=== PATIENT | female | born 1955 | race Hispanic/Latino ===

== ENCOUNTER 2016-09-20 14:50 | Emergency (ER) | payer MEDICARE ==
[2016-09-21] MEDS ORDERED: FLEXERIL PO ONE (07:46)
--- NOTE | 2016-09-21 07:50 | Emergency Department Report ---
ED Neck Pain/Injury HPI - General Chief Complaint: Neck Pain/Injury Stated Complaint: NECK/BACK PAIN Time Seen by Provider: 09/21/16 07:40 Source: patient Mode of arrival: Ambulatory Limitations: No Limitations - History of Present Illness Initial Comments: 60-year-old female presents to the emergency department complaining of neck pain and swelling in her feet. Patient states her feet have been swelling for the past 2 days. The swelling does not go past her ankles. Patient is also complaining of 2 days of pain in the back of her neck. Patient describes sharp pain that does not radiate. She denies trauma. She also reports headache in the back and top of her head. She denies weakness or paresthesias. She has been taking Tylenol for her neck pain without relief. There are no other complaints. MD Complaint: neck pain -: Gradual, days(s) (2) Place: home Severity: mild Quality: sharp Consistency: constant Improves With: none Worsens With: none Context: unknown Associated Symptoms: none Treatments Prior to Arrival: Acetaminophen - Related Data Home Medications Medication Instructions Recorded Confirmed Last Taken Diltiazem HCl [Diltiazem 24Hr ER] 180 mg PO DAILY 10/23/13 09/19/15 2 Days Ago 180 Simvastatin 1 tab PO QHS 10/23/13 03/29/16 2 Days Ago 20 Sodium Bicarbonate 1 tab PO DAILY 10/23/13 03/29/16 2 Days Ago Cyclobenzaprine [Flexeril 10 MG 10 mg PO TID PRN 09/19/15 03/29/16 2 Days Ago TAB] 10 glipiZIDE [Glucotrol] 5 mg PO QDAY 09/19/15 03/29/16 1 Day Ago 5 Previous Rx's Medication Instructions Recorded Last Taken Type HYDROcodone/APAP 5-325 [[place] 1 each PO Q6HR PRN #20 tablet 09/19/15 2 Days Ago Rx 5-325 mg TAB] 1 amLODIPine [Norvasc] 10 mg PO DAILY #30 tab 03/29/16 Unknown Rx Methocarbamol [Robaxin TAB] 750 mg PO BID PRN #30 tab 09/21/16 Unknown Rx Allergies Allergy/AdvReac Type Severity Reaction Status Date / Time codeine Allergy Unknown Verified 09/19/15 14:16 Penicillins Allergy Unknown Verified 09/19/15 14:16 ED Review of Systems ROS: Stated complaint: NECK/BACK PAIN Other details as noted in HPI Comment: All other systems reviewed and negative Cardiovascular: edema Neurological: headache ED Past Medical Hx - Past Medical History Previous Medical History?: Yes Hx Hypertension: Yes Hx Congestive Heart Failure: No Hx Diabetes: Yes Hx Arthritis: Yes (left arm) Hx Asthma: No Hx COPD: No Hx HIV: No Additional medical history: HIGH CHOLESTEROL. OBESITY - Surgical History Past Surgical History?: Yes Hx Cholecystectomy: Yes Additional Surgical History: hysterectomy - Family History Family history: no significant - Social History Smoking Status: Current Every Day Smoker Substance Use Type: None - Medications Home Medications: Home Medications Medication Instructions Recorded Confirmed Last Taken Type Diltiazem HCl [Diltiazem 24Hr ER] 180 mg PO DAILY 10/23/13 09/19/15 2 Days Ago History 180 Simvastatin 1 tab PO QHS 10/23/13 03/29/16 2 Days Ago History 20 Sodium Bicarbonate 1 tab PO DAILY 10/23/13 03/29/16 2 Days Ago History Cyclobenzaprine [Flexeril 10 MG 10 mg PO TID PRN 09/19/15 03/29/16 2 Days Ago History TAB] 10 HYDROcodone/APAP 5-325 [[place] 1 each PO Q6HR PRN #20 tablet 09/19/15 03/29/16 2 Days Ago Rx 5-325 mg TAB] 1 glipiZIDE [Glucotrol] 5 mg PO QDAY 09/19/15 03/29/16 1 Day Ago History 5 amLODIPine [Norvasc] 10 mg PO DAILY #30 tab 03/29/16 Unknown Rx Methocarbamol [Robaxin TAB] 750 mg PO BID PRN #30 tab 09/21/16 Unknown Rx ED Physical Exam - General Limitations: No Limitations General appearance: alert, in no apparent distress - Head Head exam: Present: atraumatic, normocephalic - Eye Eye exam: Present: normal appearance, PERRL, EOMI - ENT ENT exam: Present: normal exam, normal orophraynx, mucous membranes moist - Neck Neck exam: Present: normal inspection, tenderness (mild diffuse posterior tenderness to palpation with muscle spasm noted. No bony tenderness), full ROM - Respiratory Respiratory exam: Present: normal lung sounds bilaterally. Absent: respiratory distress - Cardiovascular Cardiovascular Exam: Present: regular rate, normal rhythm, normal heart sounds - GI/Abdominal GI/Abdominal exam: Present: soft, normal bowel sounds. Absent: distended, tenderness - Extremities Exam Extremities exam: Present: full ROM, pedal edema (bilateral nonpitting pedal edema.). Absent: tenderness - Back Exam Back exam: Present: normal inspection, full ROM. Absent: tenderness - Neurological Exam Neurological exam: Present: alert, oriented X3. Absent: motor sensory deficit - Skin Skin exam: Present: warm, dry, intact ED Course Vital Signs 09/20/16 09/21/16 09/21/16 15:30 05:25 07:45 Temperature 98.6 F Pulse Rate 72 77 85 Respiratory 18 18 18 Rate Blood Pressure 131/58 Blood Pressure 146/57 156/81 [Left] O2 Sat by Pulse 95 94 93 Oximetry ED Medical Decision Making - Lab Data Result diagrams: 09/21/16 07:55 - EKG Data -: EKG Interpreted by Me EKG shows normal: sinus rhythm, axis, intervals, QRS complexes, ST-T waves Rate: normal - EKG Data When compared to previous EKG there are: previous EKG unavailable Interpretation: normal EKG - Medical Decision Making Laboratory results reviewed and discussed with the patient. Patient reports feeling better with medication. It is likely that her pedal edema secondary to her use of amlodipine. Patient does have some renal insufficiency, but this is unchanged from previous. Patient will be discharged home at this time to follow up with her primary care physician. - Differential Diagnosis tension headache, muscle spasm, renal failure, pedal edema Critical care attestation.: If time is entered above; I have spent that time in minutes in the direct care of this critically ill patient, excluding procedure time. ED Disposition Clinical Impression: Muscle spasms of neck, Pedal edema Disposition: DISCHARGED TO HOME OR SELFCARE Is pt being admited?: No Condition: Stable Instructions: Muscle Spasm (ED), Leg Edema (ED) Prescriptions: Methocarbamol [Robaxin TAB] 750 mg PO BID PRN #30 tab PRN Reason: Muscle Spasm Referrals: [facility] [Other] - 3-5 Days Time of Disposition: 09:04
[2016-09-21 08:31] LABS: Albumin 4.1 g/dL (3.9-5); Albumin/Globulin Ratio 1.4 %; BUN/Creatinine Ratio 13.84; Bilirubin,Total 0.3 mg/dL (0.1-1.2); Calcium 8.9 mg/dL (8.4-10.2); Chloride 99.9 mmol/L (98-107); Potassium 3.7 mmol/L (3.6-5.0)
[2016-09-21 09:10] VITALS: BP 124/54
== END 2016-09-21 09:09 | disposition home or self-care (01) ==
LOC: ED 14:50
DX: M62.838 Other muscle spasm (principal); R60.0 Localized edema; I10 Essential (primary) hypertension; E11.9 Type 2 diabetes mellitus without complications; M19.90 Unspecified osteoarthritis, unspecified site; Z88.0 Allergy status to penicillin; Z88.8 Allergy status to other drugs, medicaments and biological substances; E78.00 Pure hypercholesterolemia, unspecified; Z90.49 Acquired absence of other specified parts of digestive tract; Z90.710 Acquired absence of both cervix and uterus; F17.200 Nicotine dependence, unspecified, uncomplicated
CPT/HCPCS: 36415; 80053; 93005; 93010; 99283

== ENCOUNTER 2017-12-27 09:12 | Emergency (ER) | payer MEDICARE ==
[2017-12-27 09:41] VITALS: BP 141/58
[2017-12-27] MEDS ORDERED: TORADOL IM ONE (13:18)
--- NOTE | 2017-12-27 13:21 | Emergency Department Report ---
ED Back Pain/Injury HPI - General Chief Complaint: Back Pain/Injury Stated Complaint: BACK PAIN Time Seen by Provider: 12/27/17 13:09 Source: patient Limitations: No Limitations - History of Present Illness Initial Comments: Patient is a 62-year-old female who is presenting with right lower back pain. Patient states he didn't present for approximately 2 weeks. Patient states his atenolol to have hurt to move. Patient denies any dysuria hematuria or urinary frequency or abdominal pain at this time. Patient denies any injury. MD Complaint: back pain Quality: aching Consistency: constant - Related Data Home Medications Medication Instructions Recorded Confirmed Last Taken Diltiazem HCl [Diltiazem 24Hr ER] 180 mg PO DAILY 10/23/13 09/19/15 2 Days Ago ~03/27/16 180 Simvastatin 1 tab PO QHS 10/23/13 03/29/16 2 Days Ago ~03/27/16 20 Sodium Bicarbonate 1 tab PO DAILY 10/23/13 03/29/16 2 Days Ago ~03/27/16 Cyclobenzaprine [Flexeril 10 MG 10 mg PO TID PRN 09/19/15 03/29/16 2 Days Ago TAB] ~03/27/16 10 glipiZIDE [Glucotrol] 5 mg PO QDAY 09/19/15 03/29/16 1 Day Ago ~03/28/16 5 Previous Rx's Medication Instructions Recorded Last Taken Type HYDROcodone/APAP 5-325 [[place] 1 each PO Q6HR PRN #20 tablet 09/19/15 2 Days Ago Rx 5-325 mg TAB] ~03/27/16 1 amLODIPine [Norvasc] 10 mg PO DAILY #30 tab 03/29/16 Unknown Rx Methocarbamol [Robaxin TAB] 750 mg PO BID PRN #30 tab 09/21/16 Unknown Rx Ibuprofen [Motrin] 600 mg PO Q8H PRN #20 tablet 12/27/17 Unknown Rx methOCARBAMOL [Robaxin TAB] 500 mg PO Q6H PRN #15 tablet 12/27/17 Unknown Rx traMADol [Ultram] 50 mg PO Q6HR PRN #12 tablet 12/27/17 Unknown Rx Allergies Allergy/AdvReac Type Severity Reaction Status Date / Time codeine Allergy Unknown Verified 12/27/17 09:37 Penicillins Allergy Unknown Verified 12/27/17 09:37 ED Review of Systems ROS: Stated complaint: BACK PAIN Other details as noted in HPI Comment: All other systems reviewed and negative ED Past Medical Hx - Past Medical History HIGH CHOLESTEROL. OBESITY Family history: no significant family history ED Back Pain Physical Exam - Exam General: Vital signs noted. No distress. Alert and acting appropriately. Back/Abdomen: Yes Perilumbar Tenderness (right), No Abdominal Tenderness, No Perithoracic Tenderness, No Sacroiliac Tenderness, No Flank Tenderness, No Straight Leg Raise Pain Neuro: Yes Normal Sensation, Yes Normal DTR's, Yes Normal Gait, No Motor Weakness ED Course Vital Signs 12/27/17 09:38 Temperature 97.8 F Pulse Rate 57 L Blood Pressure 141/58 O2 Sat by Pulse 95 Oximetry ED Medical Decision Making - Medical Decision Making Patient likely with a lumbar strain. The patient will be referred to orthopedics and will be given meds for symptomatic relief. Critical care attestation.: If time is entered above; I have spent that time in minutes in the direct care of this critically ill patient, excluding procedure time. ED Disposition Clinical Impression: Right lumbar pain Disposition: DC-01 TO HOME OR SELFCARE Is pt being admited?: No Does the pt Need Aspirin: No Condition: Stable Instructions: Back Pain (ED) Referrals: MOE RITCHIE MD [Staff Physician] - 3-5 Days
== END 2017-12-27 13:29 | disposition home or self-care (01) ==
LOC: ED 09:12
DX: M54.5 Low back pain (principal); E78.00 Pure hypercholesterolemia, unspecified; Z79.899 Other long term (current) drug therapy; Z88.0 Allergy status to penicillin; Z88.5 Allergy status to narcotic agent
CPT/HCPCS: 96372; 99282; J1885

== ENCOUNTER 2020-05-10 11:34 | Emergency (ER) | payer MEDICARE ==
[2020-05-10 12:04] VITALS: BP 137/52
--- NOTE | 2020-05-10 12:11 | Emergency Department Report ---
ED ENT HPI - General Chief complaint: Upper Respiratory Infection Stated complaint: SORE THROAT/COUGH Time Seen by Provider: 05/10/20 12:06 Source: patient Mode of arrival: Ambulatory Limitations: No Limitations - History of Present Illness Initial comments: 64-year-old female who presents emergency department complaining of a few day history sore throat that worsens with eating and drinking associated with a nonproductive cough. Reports no fevers chills no hemoptysis no hematemesis no hematochezia. She reports no shortness of breath no home no orthopnea no lower extremity swelling no wheezing. MD complaint: sore throat -: Gradual Location: throat Severity: mild Quality: dull Consistency: constant Improves with: none Worsens with: none Associated Symptoms: cough. denies: sore throat, tinnitus, discharge from ear, rhinorrhea - Related Data Home Medications Medication Instructions Recorded Confirmed Last Taken Simvastatin 1 tab PO QHS 10/23/13 03/29/16 2 Days Ago ~03/27/16 20 Sodium Bicarbonate 1 tab PO DAILY 10/23/13 03/29/16 2 Days Ago ~03/27/16 dilTIAZem HCl [Diltiazem 24Hr ER] 180 mg PO DAILY 10/23/13 09/19/15 2 Days Ago ~03/27/16 180 Cyclobenzaprine [Flexeril 10 MG 10 mg PO TID PRN 09/19/15 03/29/16 2 Days Ago TAB] ~03/27/16 10 glipiZIDE [Glucotrol] 5 mg PO QDAY 09/19/15 03/29/16 1 Day Ago ~03/28/16 5 Previous Rx's Medication Instructions Recorded Last Taken Type HYDROcodone/APAP 5-325 [[place] 1 each PO Q6HR PRN #20 tablet 09/19/15 2 Days Ago Rx 5-325 mg TAB] ~03/27/16 1 amLODIPine [Norvasc] 10 mg PO DAILY #30 tab 03/29/16 Unknown Rx methOCARBAMOL [Robaxin TAB] 750 mg PO BID PRN #30 tab 09/21/16 Unknown Rx Ibuprofen [Motrin] 600 mg PO Q8H PRN #20 tablet 12/27/17 Unknown Rx methOCARBAMOL [Robaxin TAB] 500 mg PO Q6H PRN #15 tablet 12/27/17 Unknown Rx traMADoL [Ultram] 50 mg PO Q6HR PRN #12 tablet 12/27/17 Unknown Rx Azithromycin [Zithromax Tri-Raúl] 500 mg PO DAILY #1 pack 05/10/20 Unknown Rx Allergies Allergy/AdvReac Type Severity Reaction Status Date / Time codeine Allergy Unknown Verified 12/27/17 09:37 Penicillins Allergy Unknown Verified 12/27/17 09:37 ED Dental HPI - General Chief complaint: Upper Respiratory Infection Stated complaint: SORE THROAT/COUGH Time Seen by Provider: 05/10/20 12:06 Source: patient Mode of arrival: Ambulatory Limitations: No Limitations - Related Data Home Medications Medication Instructions Recorded Confirmed Last Taken Simvastatin 1 tab PO QHS 10/23/13 03/29/16 2 Days Ago ~03/27/16 20 Sodium Bicarbonate 1 tab PO DAILY 10/23/13 03/29/16 2 Days Ago ~03/27/16 dilTIAZem HCl [Diltiazem 24Hr ER] 180 mg PO DAILY 10/23/13 09/19/15 2 Days Ago ~03/27/16 180 Cyclobenzaprine [Flexeril 10 MG 10 mg PO TID PRN 09/19/15 03/29/16 2 Days Ago TAB] ~03/27/16 10 glipiZIDE [Glucotrol] 5 mg PO QDAY 09/19/15 03/29/16 1 Day Ago ~03/28/16 5 Previous Rx's Medication Instructions Recorded Last Taken Type HYDROcodone/APAP 5-325 [[place] 1 each PO Q6HR PRN #20 tablet 09/19/15 2 Days Ago Rx 5-325 mg TAB] ~03/27/16 1 amLODIPine [Norvasc] 10 mg PO DAILY #30 tab 03/29/16 Unknown Rx methOCARBAMOL [Robaxin TAB] 750 mg PO BID PRN #30 tab 09/21/16 Unknown Rx Ibuprofen [Motrin] 600 mg PO Q8H PRN #20 tablet 12/27/17 Unknown Rx methOCARBAMOL [Robaxin TAB] 500 mg PO Q6H PRN #15 tablet 12/27/17 Unknown Rx traMADoL [Ultram] 50 mg PO Q6HR PRN #12 tablet 12/27/17 Unknown Rx Azithromycin [Zithromax Tri-Raúl] 500 mg PO DAILY #1 pack 05/10/20 Unknown Rx Allergies Allergy/AdvReac Type Severity Reaction Status Date / Time codeine Allergy Unknown Verified 12/27/17 09:37 Penicillins Allergy Unknown Verified 12/27/17 09:37 ED Review of Systems ROS: Stated complaint: SORE THROAT/COUGH Other details as noted in HPI Comment: All other systems reviewed and negative ED Past Medical Hx - Past Medical History Previous Medical History?: Yes Hx Hypertension: Yes Hx Congestive Heart Failure: No Hx Diabetes: Yes Hx Arthritis: Yes (left arm) Hx Asthma: No Hx COPD: No Hx HIV: No Additional medical history: HIGH CHOLESTEROL. OBESITY - Surgical History Past Surgical History?: Yes Hx Cholecystectomy: Yes Additional Surgical History: hysterectomy - Social History Smoking Status: Never Smoker Substance Use Type: None - Medications Home Medications: Home Medications Medication Instructions Recorded Confirmed Last Taken Type Simvastatin 1 tab PO QHS 10/23/13 03/29/16 2 Days Ago History ~03/27/16 20 Sodium Bicarbonate 1 tab PO DAILY 10/23/13 03/29/16 2 Days Ago History ~03/27/16 dilTIAZem HCl [Diltiazem 24Hr ER] 180 mg PO DAILY 10/23/13 09/19/15 2 Days Ago History ~03/27/16 180 Cyclobenzaprine [Flexeril 10 MG 10 mg PO TID PRN 09/19/15 03/29/16 2 Days Ago History TAB] ~03/27/16 10 HYDROcodone/APAP 5-325 [[place] 1 each PO Q6HR PRN #20 tablet 09/19/15 03/29/16 2 Days Ago Rx 5-325 mg TAB] ~03/27/16 1 glipiZIDE [Glucotrol] 5 mg PO QDAY 09/19/15 03/29/16 1 Day Ago History ~03/28/16 5 amLODIPine [Norvasc] 10 mg PO DAILY #30 tab 03/29/16 Unknown Rx methOCARBAMOL [Robaxin TAB] 750 mg PO BID PRN #30 tab 09/21/16 Unknown Rx Ibuprofen [Motrin] 600 mg PO Q8H PRN #20 tablet 12/27/17 Unknown Rx methOCARBAMOL [Robaxin TAB] 500 mg PO Q6H PRN #15 tablet 12/27/17 Unknown Rx traMADoL [Ultram] 50 mg PO Q6HR PRN #12 tablet 12/27/17 Unknown Rx Azithromycin [Zithromax Tri-Raúl] 500 mg PO DAILY #1 pack 05/10/20 Unknown Rx ED Physical Exam - General Limitations: No Limitations General appearance: alert, in no apparent distress - Head Head exam: Present: atraumatic, normocephalic - Eye Eye exam: Present: normal appearance - ENT ENT exam: Present: mucous membranes moist, other (red erythema to pharynx) - Neck Neck exam: Present: normal inspection - Respiratory Respiratory exam: Present: normal lung sounds bilaterally. Absent: respiratory distress - Cardiovascular Cardiovascular Exam: Present: regular rate, normal rhythm. Absent: systolic murmur, diastolic murmur, rubs, gallop - GI/Abdominal GI/Abdominal exam: Present: soft, normal bowel sounds - Extremities Exam Extremities exam: Present: normal inspection - Back Exam Back exam: Present: normal inspection - Neurological Exam Neurological exam: Present: alert, oriented X3 - Psychiatric Psychiatric exam: Present: normal affect, normal mood - Skin Skin exam: Present: warm, dry, intact, normal color. Absent: rash ED Course Vital Signs 05/10/20 12:02 Temperature 97.7 F Pulse Rate 65 Respiratory 20 Rate Blood Pressure 137/52 O2 Sat by Pulse 95 Oximetry Critical care attestation.: If time is entered above; I have spent that time in minutes in the direct care of this critically ill patient, excluding procedure time. ED Disposition Clinical Impression: Pharyngitis Disposition: DC-01 TO HOME OR SELFCARE Is pt being admited?: No Does the pt Need Aspirin: No Condition: Stable Instructions: Pharyngitis, Strep Throat, Adult, [id number], Sore Throat, [id number] Prescriptions: Azithromycin [Zithromax Tri-Raúl] 500 mg PO DAILY #1 pack Referrals: [facility] [Provider Group] - 3-5 Days
== END 2020-05-10 12:53 | disposition home or self-care (01) ==
LOC: ED 11:34
DX: J02.9 Acute pharyngitis, unspecified (principal); I10 Essential (primary) hypertension; E11.9 Type 2 diabetes mellitus without complications; M13.88 Other specified arthritis, other site; J45.909 Unspecified asthma, uncomplicated; E78.00 Pure hypercholesterolemia, unspecified; Z90.710 Acquired absence of both cervix and uterus; Z90.49 Acquired absence of other specified parts of digestive tract; Z79.899 Other long term (current) drug therapy; Z88.6 Allergy status to analgesic agent; Z88.0 Allergy status to penicillin
CPT/HCPCS: 99282

== ENCOUNTER 2020-08-31 11:52 | Emergency (ER) | payer MEDICARE ==
[2020-08-31] MEDS ORDERED: ONDANSETRON 4 MG ODT TAB PO ONE (12:42)
[2020-08-31] MEDS ORDERED: HYDROcodone/ACETAMINOPHEN 5-325 MG TAB PO ONE (12:42)
--- NOTE | 2020-08-31 12:43 | Emergency Department Report ---
ED Lower Extremity HPI - General Stated Complaint: RT KNEE SWELLING Time Seen by Provider: 08/31/20 12:41 - History of Present Illness Initial Comments: 64 yr old female with past medical history of diabetes, hyperlipidemia, anxiety and depression and a past medical history of arthritis presents to the ER today with complaints of right knee pain and swelling. Patient states that she woke up this morning with pain and swelling to the anterior aspect of her right knee. She denies any injury but she did does admits that she was walking well about 10 to 15 minutes yesterday. She reports increased pain with flexion extension of knee and with ambulation and weightbearing. Reports no bruising or erythema. Reports no other symptoms at this time. MD Complaint: other (Right knee pain ) -: Gradual, This morning - Related Data Home Medications Medication Instructions Recorded Confirmed Last Taken Simvastatin 1 tab PO QHS 10/23/13 03/29/16 2 Days Ago ~03/27/16 20 dilTIAZem HCl [Diltiazem 24Hr ER] 180 mg PO DAILY 10/23/13 09/19/15 2 Days Ago ~03/27/16 180 Cyclobenzaprine [Flexeril 10 MG 10 mg PO TID PRN 09/19/15 03/29/16 2 Days Ago TAB] ~03/27/16 10 glipiZIDE [Glucotrol] 5 mg PO QDAY 09/19/15 03/29/16 1 Day Ago ~03/28/16 5 Previous Rx's Medication Instructions Recorded Last Taken Type amLODIPine [Norvasc] 10 mg PO DAILY #30 tab 03/29/16 Unknown Rx Diclofenac 1% [Diclofenac 1% 2 gram TP QID PRN #100 gm 08/31/20 Unknown Rx topical gel] HYDROcodone/APAP 5-325 [[place] 1 each PO Q6HR PRN #12 tablet 08/31/20 Unknown Rx 5-325 mg TAB] Allergies Allergy/AdvReac Type Severity Reaction Status Date / Time codeine Allergy Unknown Verified 12/27/17 09:37 Penicillins Allergy Unknown Verified 12/27/17 09:37 ED Review of Systems ROS: Stated complaint: RT KNEE SWELLING Other details as noted in HPI Comment: All other systems reviewed and negative Musculoskeletal: joint swelling, arthralgia ED Past Medical Hx - Past Medical History Hx Hypertension: Yes Hx Congestive Heart Failure: No Hx Diabetes: Yes Hx Arthritis: Yes (left arm) Hx Asthma: No Hx COPD: No Hx HIV: No Additional medical history: HIGH CHOLESTEROL. OBESITY - Surgical History Hx Cholecystectomy: Yes Additional Surgical History: hysterectomy - Social History Smoking Status: Never Smoker Substance Use Type: None - Medications Home Medications: Home Medications Medication Instructions Recorded Confirmed Last Taken Type Simvastatin 1 tab PO QHS 10/23/13 03/29/16 2 Days Ago History ~03/27/16 20 dilTIAZem HCl [Diltiazem 24Hr ER] 180 mg PO DAILY 10/23/13 09/19/15 2 Days Ago History ~03/27/16 180 Cyclobenzaprine [Flexeril 10 MG 10 mg PO TID PRN 09/19/15 03/29/16 2 Days Ago History TAB] ~03/27/16 10 glipiZIDE [Glucotrol] 5 mg PO QDAY 09/19/15 03/29/16 1 Day Ago History ~03/28/16 5 amLODIPine [Norvasc] 10 mg PO DAILY #30 tab 03/29/16 Unknown Rx Diclofenac 1% [Diclofenac 1% 2 gram TP QID PRN #100 gm 08/31/20 Unknown Rx topical gel] HYDROcodone/APAP 5-325 [[place] 1 each PO Q6HR PRN #12 tablet 08/31/20 Unknown Rx 5-325 mg TAB] ED Physical Exam - General General appearance: alert, in no apparent distress, obese - Head Head exam: Present: atraumatic, normocephalic, normal inspection - Eye Eye exam: Present: normal appearance, PERRL, EOMI Pupils: Present: normal accommodation - Respiratory Respiratory exam: Absent: respiratory distress - Cardiovascular Cardiovascular Exam: Present: regular rate - Expanded Lower Extremity Exam Right Knee exam: Present: tenderness (Moderate tenderness to palpation to the anterior medial aspect of the right knee), swelling (There is mild swelling when compared to the left to the anterior aspect of the right knee). Absent: full ROM (Flexion and extension of the knee reduced due to pain), abrasion, laceration, ecchymosis, deformity, crepidus, dislocation, erythema, effusion, pain w/ pronation/supination, posterior draw sign, pain/laxity with valgus, pain/laxity with varus Lower Leg exam: Absent: normal inspection, tenderness, swelling, palpable cord, Jose's sign Neuro vascular tendon exam: Present: no vascular compromise - Neurological Exam Neurological exam: Present: alert, oriented X3, CN II-XII intact - Psychiatric Psychiatric exam: Present: normal affect, normal mood - Skin Skin exam: Present: intact ED Course Vital Signs 08/31/20 08/31/20 12:38 14:24 Temperature 98.2 F 97.8 F Pulse Rate 71 100 H Respiratory 18 Rate Blood Pressure 146/62 O2 Sat by Pulse 97 Oximetry ED Lower Extremity MDM - Radiology Data Radiology results: report reviewed Patient: CARLIE TOLEDO MR#: [id number] : 1955 Acct:[id number] Age/Sex: 64 / F ADM Date: 08/31/20 Loc: ED Attending Dr: Ordering Physician: TOYA TOLENTINO Date of Service: 08/31/20 Procedure(s): XR knee 3V RT Accession Number(s): [id number] cc: TOYA TOLENTINO Fluoro Time In Minutes: RIGHT KNEE 3 VIEWS INDICATION: pain and swelling. COMPARISON: None. IMPRESSION: No acute osseous or soft tissue abnormality. Moderate to severe osteoarthritic changes are identified in the medial compartment and patellofemoral compartment. Signer Name: Harsh Stern Jr, MD Signed: 08/31/2020 1:22 PM Workstation Name: [id number] Transcribed By: TTR Dictated By: HARSH STERN JR, MD Electronically Authenticated By: HARSH STERN JR, MD Signed Date/Time: 08/31/20 132 DD/ 21 TD/TT: Critical care attestation.: If time is entered above; I have spent that time in minutes in the direct care of this critically ill patient, excluding procedure time. ED Disposition Clinical Impression: Right knee DJD, Sprain of right knee Disposition: DC-01 TO HOME OR SELFCARE Is pt being admited?: No Does the pt Need Aspirin: No Condition: Stable Instructions: Arthritis, [id number], Knee Sprain, Adult, [id number] Additional Instructions: Take the norco as prescribed. Use the voltaren gel as prescribed. I recommend elevating your leg as often as possible for the next 2-3 days. Use the FARIDEH wrap as instructed. I recommend following up with the [facility] listed on your d/c instructions. Return to ED if worse. Prescriptions: Diclofenac 1% [Diclofenac 1% topical gel] 2 gram TP QID PRN #100 gm PRN Reason: Pain HYDROcodone/APAP 5-325 [[place] 5-325 mg TAB] 1 each PO Q6HR PRN #12 tablet PRN Reason: Pain Referrals: MOE RITCHIE MD [Staff Physician] - 3-5 Days Time of Disposition: 13:41
[2020-08-31 12:44] VITALS: BP 146/62
--- NOTE | 2020-08-31 13:27 | XRay Report ---
RIGHT KNEE 3 VIEWS INDICATION: pain and swelling. COMPARISON: None. IMPRESSION: No acute osseous or soft tissue abnormality. Moderate to severe osteoarthritic change s are identified in the medial compartment and patellofemoral compartment. Signer Name: Harsh Stern Jr, MD Signed: 08/31/2020 1:22 PM Workstation Name: [id number]
== END 2020-08-31 14:23 | disposition home or self-care (01) ==
LOC: ED 11:52
DX: S83.91XA Sprain of unspecified site of right knee, initial encounter (principal); M17.11 Unilateral primary osteoarthritis, right knee; I10 Essential (primary) hypertension; E11.9 Type 2 diabetes mellitus without complications; M19.90 Unspecified osteoarthritis, unspecified site; Z98.890 Other specified postprocedural states; Z79.899 Other long term (current) drug therapy; X58.XXXA Exposure to other specified factors, initial encounter; Y93.89 Activity, other specified; Y92.89 Other specified places as the place of occurrence of the external cause; Y99.8 Other external cause status
CPT/HCPCS: 99283; Q0162

== ENCOUNTER 2021-03-21 07:06 | Inpatient (IN) | payer MEDICARE ==
[2021-03-21] MEDS ORDERED: SODIUM CHLORIDE 0.9% 1000 ML IV SOLN IV ONE (07:57)
[2021-03-21] MEDS ORDERED: ACETAMINOPHEN 500 MG TAB PO ONE (08:02)
--- NOTE | 2021-03-21 08:02 | Emergency Department Report ---
ED General Adult HPI - General Chief complaint: Chest Pain Stated complaint: neck and shoulder pain Time Seen by Provider: 03/21/21 07:48 Source: patient Mode of arrival: Ambulatory Limitations: No Limitations - History of Present Illness Initial comments: Ms. Louise is a 65-year-old female with history of hypertension, diabetes and hyperlipidemia. Patient presented to the ER complaining of diffuse upper back pain that radiated to the neck and to the chest. Patient described the pain as dull aching pain. Patient described the chest pain as diffuse with no localization. Patient stated that she is having chills. She also reported some shortness of breath but no cough. Patient also stated that she has been nauseated but no vomiting. Patient is fully vaccinated against COVID-19. Last shot was February 21. Severity scale (0 -10): 9 - Related Data Home Medications Medication Instructions Recorded Confirmed Last Taken Simvastatin 1 tab PO QHS 10/23/13 03/21/21 2 Days Ago ~03/27/16 20 dilTIAZem HCl [Diltiazem 24Hr ER] 180 mg PO DAILY 10/23/13 03/21/21 2 Days Ago ~03/27/16 180 Cyclobenzaprine [Flexeril 10 MG 10 mg PO TID PRN 09/19/15 03/21/21 2 Days Ago TAB] ~03/27/16 10 glipiZIDE [Glucotrol] 5 mg PO QDAY 09/19/15 03/21/21 1 Day Ago ~03/28/16 5 Previous Rx's Medication Instructions Recorded Last Taken Type amLODIPine [Norvasc] 10 mg PO DAILY #30 tab 03/29/16 Unknown Rx Diclofenac 1% [Diclofenac 1% 2 gram TP QID PRN #100 gm 08/31/20 Unknown Rx topical gel] HYDROcodone/APAP 5-325 [[place] 1 each PO Q6HR PRN #12 tablet 08/31/20 Unknown Rx 5-325 mg TAB] Allergies Allergy/AdvReac Type Severity Reaction Status Date / Time codeine Allergy Unknown Verified 03/21/21 07:27 Penicillins Allergy Unknown Verified 03/21/21 07:27 ED Review of Systems ROS: Stated complaint: neck and shoulder pain Other details as noted in HPI Comment: All other systems reviewed and negative Constitutional: chills, fever Respiratory: shortness of breath, SOB with exertion, SOB at rest. denies: wheezing Cardiovascular: chest pain Gastrointestinal: nausea. denies: abdominal pain, vomiting, diarrhea, constipation, hematemesis, melena, hematochezia Musculoskeletal: back pain Neurological: denies: headache ED Past Medical Hx - Past Medical History Hx Hypertension: Yes Hx Congestive Heart Failure: No Hx Diabetes: Yes Hx Arthritis: Yes (left arm) Hx Asthma: No Hx COPD: No Hx HIV: No Additional medical history: HIGH CHOLESTEROL. OBESITY - Surgical History Hx Cholecystectomy: Yes Additional Surgical History: hysterectomy - Social History Smoking Status: Never Smoker Substance Use Type: None - Medications Home Medications: Home Medications Medication Instructions Recorded Confirmed Last Taken Type Simvastatin 1 tab PO QHS 10/23/13 03/21/21 2 Days Ago History ~03/27/16 20 dilTIAZem HCl [Diltiazem 24Hr ER] 180 mg PO DAILY 10/23/13 03/21/21 2 Days Ago History ~03/27/16 180 Cyclobenzaprine [Flexeril 10 MG 10 mg PO TID PRN 09/19/15 03/21/21 2 Days Ago History TAB] ~03/27/16 10 glipiZIDE [Glucotrol] 5 mg PO QDAY 09/19/15 03/21/21 1 Day Ago History ~03/28/16 5 amLODIPine [Norvasc] 10 mg PO DAILY #30 tab 03/29/16 03/21/21 Unknown Rx Diclofenac 1% [Diclofenac 1% 2 gram TP QID PRN #100 gm 08/31/20 03/21/21 Unknown Rx topical gel] HYDROcodone/APAP 5-325 [[place] 1 each PO Q6HR PRN #12 tablet 08/31/20 03/21/21 Unknown Rx 5-325 mg TAB] ED Physical Exam - General Limitations: No Limitations General appearance: alert, in no apparent distress - Head Head exam: Present: atraumatic, normocephalic, normal inspection - Eye Eye exam: Present: normal appearance - ENT ENT exam: Present: normal exam, mucous membranes dry - Neck Neck exam: Present: normal inspection, full ROM. Absent: tenderness, menin gismus - Respiratory Respiratory exam: Present: normal lung sounds bilaterally - Cardiovascular Cardiovascular Exam: Present: regular rate, normal rhythm, normal heart sounds - GI/Abdominal GI/Abdominal exam: Present: soft, normal bowel sounds. Absent: distended, tenderness, guarding, rebound, rigid, organomegaly, mass, bruit, pulsatile mass, hernia - Extremities Exam Extremities exam: Present: normal inspection, full ROM, normal capillary refill. Absent: tenderness - Back Exam Back exam: Present: normal inspection, full ROM. Absent: CVA tenderness (R), CVA tenderness (L) - Neurological Exam Neurological exam: Present: alert, oriented X3, CN II-XII intact, normal gait, reflexes normal. Absent: motor sensory deficit - Psychiatric Psychiatric exam: Present: normal mood - Skin Skin exam: Present: warm, intact, normal color ED Course Vital Signs 03/21/21 03/21/21 03/21/21 07:25 10:10 10:28 Temperature 99.9 F H Pulse Rate 73 73 Respiratory 20 18 15 Rate Blood Pressure Blood Pressure 109/45 [Right] O2 Sat by Pulse 94 97 96 Oximetry 03/21/21 03/21/21 03/21/21 10:30 10:46 11:00 Temperature Pulse Rate 73 76 76 Respiratory 13 18 23 Rate Blood Pressure 87/33 121/94 118/46 Blood Pressure [Right] O2 Sat by Pulse 96 96 96 Oximetry 03/21/21 03/21/21 03/21/21 11:16 11:30 11:46 Temperature Pulse Rate 77 77 77 Respiratory 39 H 21 28 H Rate Blood Pressure 118/46 118/46 87/33 Blood Pressure [Right] O2 Sat by Pulse 95 95 95 Oximetry 03/21/21 03/21/21 03/21/21 12:00 12:16 12:30 Temperature Pulse Rate 82 77 76 Respiratory 17 26 H 41 H Rate Blood Pressure 118/46 118/46 118/46 Blood Pressure [Right] O2 Sat by Pulse 96 96 96 Oximetry 03/21/21 03/21/21 03/21/21 12:46 13:00 13:16 Temperature Pulse Rate 77 78 77 Respiratory 25 H 20 43 H Rate Blood Pressure 118/46 118/46 118/46 Blood Pressure [Right] O2 Sat by Pulse 96 95 94 Oximetry 03/21/21 03/21/21 03/21/21 13:30 13:46 14:00 Temperature Pulse Rate 76 74 76 Respiratory 41 H 16 15 Rate Blood Pressure 118/46 118/46 118/46 Blood Pressure [Right] O2 Sat by Pulse 93 93 94 Oximetry 03/21/21 03/21/21 03/21/21 14:16 14:30 14:46 Temperature Pulse Rate 80 78 81 Respiratory 20 23 39 H Rate Blood Pressure 118/46 118/46 118/46 Blood Pressure [Right] O2 Sat by Pulse 94 94 94 Oximetry ED Medical Decision Making - Lab Data Result diagrams: 03/21/21 08:12 03/21/21 08:12 - EKG Data -: EKG Interpreted by [facility] EKG shows normal: sinus rhythm Rate: normal - EKG Data Interpretation: no acute changes - Radiology Data Radiology results: report reviewed - Medical Decision Making Ms. Louise is a 65-year-old female with history of hypertension, diabetes and hyperlipidemia. Patient presented to the ER complaining of diffuse upper back pain that radiated to the neck and to the chest. Patient described the pain as dull aching pain. Patient described the chest pain as diffuse with no localization. Patient stated that she is having chills. She also reported some shortness of breath but no cough. Patient also stated that she has been nauseated but no vomiting. Patient is fully vaccinated against COVID-19. Last shot was February 21. Vital signs remained stable. Labs showed leukocytosis of 15,000. Urine is positive for UTI. Chest x-ray showed a linear opacity concerning for pneumonia. BNP is more than 4000. Patient received Levaquin. I discussed the patient with Dr. Manzo, he agreed to admit the patient to medical service for further management. Critical care attestation.: If time is entered above; I have spent that time in minutes in the direct care of this critically ill patient, excluding procedure time. ED Disposition Clinical Impression: New onset of congestive heart failure, Elevated troponin, Pneumonia, UTI (urinary tract infection), Suspected COVID-19 virus infection Disposition: 02 SHORT TERM HOSPITAL Is pt being admited?: Yes Condition: Stable Instructions: Bacterial Pneumonia (ED)
--- NOTE | 2021-03-21 08:33 | XRay Report ---
CHEST 2 VIEWS INDICATION: Chest Pain. COMPARISON: None FINDINGS: Support devices: None. Heart: Within normal limits. Lungs/pleura: No acute air space or interstitial disease. There are minor linear opacities in the ri ght lower lung which probably represent scarring or atelectasis. No evidence for pneumonia, pleural e ffusion or pneumothorax. Additional findings: None. IMPRESSION: No acute findings. Signer Name: Harsh Stern Jr, MD Signed: 03/21/2021 8:29 AM Workstation Name: [id number]
[2021-03-21 08:55] LABS: Basophils % (Auto) 0.3 % (0.0-1.8); Eosinophils % (Auto) 0.2 % (0.0-4.3); Hematocrit 36.3 % (30.3-42.9); Hemoglobin 12.1 gm/dl (10.1-14.3); Lymphocytes # (Auto) 0.9 K/mm3 (1.2-5.4); Lymphocytes % (Auto) 5.7 % (13.4-35.0); Mean Corpuscular HGB Conc 33 % (30-34); Mean Corpuscular Volume 90 fl (79-97); Monocytes # (Auto) 0.9 K/mm3 (0.0-0.8); Platelet Count 290 K/mm3 (140-440); Red Blood Count 4.02 M/mm3 (3.65-5.03); Red Cell Distribution Width 13.5 % (13.2-15.2)
[2021-03-21 09:14] LABS: Calcium 9.1 mg/dL (8.4-10.2)
[2021-03-21 09:20] LABS: Albumin 4.2 g/dL (3.9-5); Bilirubin,Direct 0.3 mg/dL (0-0.2)
[2021-03-21 09:30] LABS: INR 1.03 (0.87-1.13)
[2021-03-21 09:31] LABS: Partial Thromboplastin Time 28.2 Sec. (24.2-36.6)
[2021-03-21 10:25] LABS: Chol/HDL Ratio 2.23 %
[2021-03-21 10:54] LABS: Bilirubin,Urine NEG (Negative); Blood,Urine SM (Negative); Color,Urine Amber (Yellow)
[2021-03-21 10:55] LABS: Bacteria,Urine 3+ /HPF (Negative); Mucus,Urine 2+ /HPF
[2021-03-21] MEDS ORDERED: SODIUM CHLORIDE 0.9% 1000 ML 3,000 ML ONE (11:07)
--- NOTE | 2021-03-21 13:20 | Cat Scan Report ---
CT CHEST, ABDOMEN, AND PELVIS WITHOUT CONTRAST INDICATION / CLINICAL INFORMATION: chest pain, fever. TECHNIQUE: Axial CT images were obtained through the chest, abdomen, and pelvis without contrast. All CT scans at this location are performed using CT dose reduction for ALARA by means of automated expo sure control. COMPARISON: None available. FINDINGS: CHEST: HEART: There is a trace pericardial effusion. CORONARY ARTERY CALCIFICATION: Mild. THORACIC AORTA: Mild atherosclerotic calcification without acute abnormality. MEDIASTINUM / NAOMY: No significant abnormality. PLEURA: There is a trace right pleural effusion. No pneumothorax. LUNGS: No acute air space or interstitial disease. There is platelike atelectasis within the right lulu ng. ADDITIONAL CHEST FINDINGS: There is a small hiatal hernia. ABDOMEN/PELVIS: AORTA / ARTERIES: Mild atherosclerotic calcification without acute abnormality. IVC / VEINS: No significant abnormality. LYMPH NODES: No significant adenopathy. COLON: Diverticulosis without acute inflammation. APPENDIX: No significant abnormality. STOMACH / SMALL BOWEL: No significant abnormality. PERITONEUM: No free fluid. No free air. No fluid collection. LIVER: No significant abnormality. GALLBLADDER: Cholecystectomy. BILE DUCTS: No significant abnormality. PANCREAS: No significant abnormality. SPLEEN: No significant abnormality. ADRENALS: No significant abnormality. RIGHT KIDNEY / URETER: Exophytic right renal cyst. No hydronephrosis. LEFT KIDNEY / URETER: No significant abnormality. URINARY BLADDER: No significant abnormality. REPRODUCTIVE ORGANS: No significant abnormality. SKELETAL SYSTEM: Scattered degeneration. ADDITIONAL FINDINGS: None. IMPRESSION: 1. No acute intrathoracic, intra-abdominal or intrapelvic pathology. 2. Trace right pleural effusion. Trace pericardial effusion. 3. Small hiatal hernia. 4. Exophytic right renal cyst. 5. Diverticulosis without diverticulitis. 6. Other additional findings as above. Signer Name: Stanislav Borden DO Signed: 03/21/2021 1:16 PM Workstation Name: [id number]
[2021-03-21] MEDS ORDERED: CYCLOBENZAPRINE 10 MG TAB PO PRN (18:47)
[2021-03-21] MEDS ORDERED: DICLOFENAC SODIUM 1% TOPICAL GEL 100 GM TP PRN (18:47)
[2021-03-21] MEDS ORDERED: dilTIAZem CD 300 MG CAP PO SCH (19:00)
--- NOTE | 2021-03-21 19:13 | History and Physical Report ---
History of Present Illness Date of examination: 03/21/21 Date of admission: 03/21/21 15:22 Chief complaint: Fever chills and chest pain since yesterday History of present illness: 65-year-old female with history of hypertension diabetes and hyperlipidemia comes to the emergency room for diffuse upper back pain and neck pain and also chest pain. Patient describes the pain as dull aching pain. Chest pain is diffuse. Patient also complains of having chills and shortness of breath but no vomiting or diarrhea. - Past Medical History --Hypertension: Yes --Diabetes: Yes --Arthritis: Yes (left arm) --Additional medical history: HIGH CHOLESTEROL. 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 Skin no rash no itching Psychiatric no depression no homicidal or suicidal tendencies Hematologic no lymphedema or bruising Endocrine no polydipsia no polyuria no cold intolerance no heat intolerance Medications and Allergies Allergies Allergy/AdvReac Type Severity Reaction Status Date / Time codeine Allergy Unknown Verified 03/22/21 04:43 Penicillins Allergy Unknown Verified 03/22/21 04:43 Home Medications Medication Instructions Recorded Confirmed Last Taken Type Simvastatin 1 tab PO QHS 10/23/13 03/22/21 03/20/21 History dilTIAZem HCl [Diltiazem 24Hr ER] 180 mg PO DAILY 10/23/13 03/22/21 03/20/21 History Cyclobenzaprine [Flexeril 10 MG 10 mg PO TID PRN 09/19/15 03/22/21 03/20/21 History TAB] glipiZIDE [Glucotrol] 5 mg PO QDAY 09/19/15 03/22/21 03/20/21 History 5 mg amLODIPine [Norvasc] 10 mg PO DAILY #30 tab 03/29/16 03/22/21 03/20/21 Rx Diclofenac 1% [Diclofenac 1% 2 gram TP QID PRN #100 gm 08/31/20 03/22/21 03/20/21 Rx topical gel] HYDROcodone/APAP 5-325 [[place] 1 each PO Q6HR PRN #12 tablet 08/31/20 03/22/21 03/20/21 Rx 5-325 mg TAB] Active Meds: Active Medications Amlodipine Besylate (Amlodipine 10 Mg Tab) 10 mg PO DAILY YUNIOR Cyclobenzaprine HCl (Cyclobenzaprine 10 Mg Tab) 10 mg PO TID PRN PRN Reason: Muscle Spasm Diclofenac Sodium (Diclofenac Sodium 1% Topical Gel 100 Gm) 0.4 applic TP QID PRN PRN Reason: Pain Diltiazem HCl (Diltiazem Cd 300 Mg Cap) 180 mg PO DAILY YUNIOR Glipizide (Glipizide 5 Mg Tab) 5 mg PO QDAY YUNIOR Exam - Constitutional Vitals: Temp Pulse Resp BP Pulse Ox 99.9 F H 77 26 H 118/46 95 03/21/21 07:25 03/21/21 15:16 03/21/21 15:16 03/21/21 18:16 03/21/21 18:16 General appearance: Present: no acute distress, well-nourished - EENT Eyes: Present: PERRL ENT: hearing intact, clear oral mucosa - Neck Neck: Present: supple, normal ROM - Respiratory Respiratory effort: normal Respiratory: bilateral: CTA - Cardiovascular Heart rate: 78 Rhythm: regular Heart Sounds: Present: S1 & S2. Absent: rub, click - Extremities Extremities: pulses symmetrical, No edema Peripheral Pulses: within normal limits - Abdominal General gastrointestinal: Present: soft, non-tender, non-distended, normal bowel sounds Female genitourinary: Present: normal - Integumentary Integumentary: Present: clear, warm, dry - Musculoskeletal Musculoskeletal: gait normal, strength equal bilaterally - Psychiatric Psychiatric: appropriate mood/affect, intact judgment & insight - Neurologic Neurologic: CNII-XII intact, moves all extremities - Allied Health Allied health notes reviewed: nursing, case management HEART Score - HEART Score History: Moderately suspicious Age: > 65 Risk factors: 1-2 risk factors Troponin: Troponin T 0.700 ng/mL (0.00-0.029) H* D 03/21/21 14:16 Troponin: > 3x normal limit - Critical Actions Critical Actions: 4-6 pts:12-16.6% risk of adverse cardiac event. Should be admitted Results - Labs CBC & Chem 7: 03/22/21 05:38 03/21/21 21:00 Labs: Laboratory Last Values WBC 15.3 K/mm3 (4.5-11.0) H 03/21/21 08:12 RBC 4.02 M/mm3 (3.65-5.03) 03/21/21 08:12 Hgb 12.1 gm/dl (10.1-14.3) 03/21/21 08:12 Hct 36.3 % (30.3-42.9) 03/21/21 08:12 MCV 90 fl (79-97) 03/21/21 08:12 MCH 30 pg (28-32) 03/21/21 08:12 MCHC 33 % (30-34) 03/21/21 08:12 RDW 13.5 % (13.2-15.2) 03/21/21 08:12 Plt Count 290 K/mm3 (140-440) 03/21/21 08:12 Lymph % (Auto) 5.7 % (13.4-35.0) L 03/21/21 08:12 [place] % (Auto) 6.0 % (0.0-7.3) 03/21/21 08:12 Eos % (Auto) 0.2 % (0.0-4.3) 03/21/21 08:12 Baso % (Auto) 0.3 % (0.0-1.8) 03/21/21 08:12 Lymph # (Auto) 0.9 K/mm3 (1.2-5.4) L 03/21/21 08:12 [place] # (Auto) 0.9 K/mm3 (0.0-0.8) H 03/21/21 08:12 Eos # (Auto) 0.0 K/mm3 (0.0-0.4) 03/21/21 08:12 Baso # (Auto) 0.0 K/mm3 (0.0-0.1) 03/21/21 08:12 Seg Neutrophils % 87.8 % (40.0-70.0) H 03/21/21 08:12 Seg Neutrophils # 13.4 K/mm3 (1.8-7.7) H 03/21/21 08:12 PT 14.1 Sec. (12.2-14.9) 03/21/21 08:12 INR 1.03 (0.87-1.13) 03/21/21 08:12 APTT 28.2 Sec. (24.2-36.6) 03/21/21 08:12 Sodium 140 mmol/L (137-145) 03/21/21 08:12 Potassium 4.2 mmol/L (3.6-5.0) 03/21/21 08:12 Chloride 104.0 mmol/L (98-107) 03/21/21 08:12 Carbon Dioxide 20 mmol/L (22-30) L 03/21/21 08:12 Anion Gap 20 mmol/L 03/21/21 08:12 BUN 31 mg/dL (7-17) H 03/21/21 08:12 Creatinine 1.4 mg/dL (0.6-1.2) H 03/21/21 08:12 Estimated GFR 38 ml/min 03/21/21 08:12 BUN/Creatinine Ratio 22 % 03/21/21 08:12 Glucose 169 mg/dL (65-100) H 03/21/21 08:12 Lactic Acid 1.30 mmol/L (0.7-2.0) 03/21/21 10:54 Calcium 9.1 mg/dL (8.4-10.2) 03/21/21 08:12 Total Bilirubin 0.60 mg/dL (0.1-1.2) 03/21/21 08:12 Direct Bilirubin 0.3 mg/dL (0-0.2) H 03/21/21 08:12 Indirect Bilirubin 0.3 mg/dL 03/21/21 08:12 AST 28 units/L (5-40) 03/21/21 08:12 ALT 22 units/L (7-56) 03/21/21 08:12 Alkaline Phosphatase 108 units/L (35-129) 03/21/21 08:12 Troponin T 0.700 ng/mL (0.00-0.029) H* D 03/21/21 14:16 NT-Pro-B Natriuret Pep 3683 pg/mL (0-900) H 03/21/21 08:12 Total Protein 7.4 g/dL (6.3-8.2) 03/21/21 08:12 Albumin 4.2 g/dL (3.9-5) 03/21/21 08:12 Albumin/Globulin Ratio 1.3 % 03/21/21 08:12 Triglycerides 69 mg/dL (2-149) 03/21/21 08:12 Cholesterol 96 mg/dL (50-199) 03/21/21 08:12 LDL Cholesterol Direct 43 mg/dL (50-130) L 03/21/21 08:12 HDL Cholesterol 43 mg/dL (40-59) 03/21/21 08:12 Cholesterol/HDL Ratio 2.23 % 03/21/21 08:12 Lipase 41 units/L (13-60) 03/21/21 08:12 Urine Color Dotty (Yellow) 03/21/21 08:30 Urine Turbidity Cloudy (Clear) 03/21/21 08:30 Urine pH 5.0 (5.0-7.0) 03/21/21 08:30 Ur Specific [place] 1.024 (1.003-1.030) 03/21/21 08:30 Urine Protein 30 mg/dl mg/dL (Negative) 03/21/21 08:30 Urine Glucose (UA) Neg mg/dL (Negative) 03/21/21 08:30 Urine Ketones Neg mg/dL (Negative) 03/21/21 08:30 Urine Blood Sm (Negative) 03/21/21 08:30 Urine Nitrite Neg (Negative) 03/21/21 08:30 Urine Bilirubin Neg (Negative) 03/21/21 08:30 Urine Urobilinogen 4.0 mg/dL (<2.0) 03/21/21 08:30 Ur Leukocyte Esterase Lg (Negative) 03/21/21 08:30 Urine WBC (Auto) 38.0 /HPF (0.0-6.0) H 03/21/21 08:30 Urine RBC (Auto) 47.0 /HPF (0.0-6.0) 03/21/21 08:30 U Epithel Cells (Auto) 67.0 /HPF (0-13.0) H 03/21/21 08:30 Urine Bacteria (Auto) 3+ /HPF (Negative) 03/21/21 08:30 Urine Mucus 2+ /HPF 03/21/21 08:30 Microbiology: Microbiology 03/21/21 08:12 Peripheral/Venous Blood Culture - Preliminary Culture in Progress 03/21/21 08:12 Peripheral/Venous Blood Culture - Preliminary Culture in Progress - Imaging and Cardiology Chest x-ray: report reviewed CT scan - abdomen: report reviewed CT scan - chest: report reviewed Imaging and Cardiology: Chest x-ray Lungs/pleura no acute airspace or interstitial disease.. There are minor linear opacities in the right lower lung which probably represent scarring of atelectas is. No evidence for pneumonia pleural effusion or pneumothorax. Impression No acute findings Abdomen/pelvic CT No acute intrathoracic intra-abdominal or intrapelvic pathology Trace right pleural effusion Trace pericardial effusion Small hiatal hernia Exophytic right renal cyst Diverticulosis without diverticulitis Other findings as above Chest CT No acute findings Assessment and Plan Advance Directives: Yes (Full code) VTE prophylaxis?: Chemical Plan of care discussed with patient/family: Yes - Patient Problems (1) SIRS (systemic inflammatory response syndrome) Current Visit: Yes Status: Acute Plan to address problem: Clinical picture consistent with systemic inflammatory response syndrome White count is 15,300 Urine WBCs at 38 (2) Pneumonia Current Visit: Yes Status: Acute Qualifiers: Lung location: unspecified part of lung Plan to address problem: Patient initiated on IV ceftriaxone and Zithromax (3) Suspected COVID-19 virus infection Current Visit: Yes Status: Acute Plan to address problem: Coronavirus PCR in a.m. (4) DIMITRIOS (acute kidney injury) Current Visit: Yes Status: Acute Plan to address problem: Secondary to vasomotor nephropathy IV normal saline for 12 hours Recheck creatinine levels (5) CHF (congestive heart failure) Current Visit: Yes Status: Acute Qualifiers: Heart failure type: combined systolic and diastolic Plan to address problem: BNP is elevated BNP is 3683 Echocardiogram for ejection fraction and valve function (6) Elevated troponin Current Visit: Yes Status: Acute Plan to address problem: Check CK and CK-MB Cardiology consult Heparin was not started (7) UTI (urinary tract infection) Current Visit: Yes Status: Acute Qualifiers: Urinary tract infection type: acute cystitis Plan to address problem: Patient on IV Rocephin (8) DVT prophylaxis Current Visit: Yes Status: Acute Plan to address problem: Patient on anticoagulation and GI prophylaxis
[2021-03-21] MEDS ORDERED: ONDANSETRON 4 MG/2 ML INJ IV PRN (19:30)
[2021-03-21] MEDS ORDERED: oxyCODONE /ACETAMINOPHEN 5-325MG TAB PO PRN (19:56)
[2021-03-21] MEDS ORDERED: METOCLOPRAMIDE 10 MG/2 ML INJ IV PRN (19:56)
[2021-03-21] MEDS ORDERED: ENOXAPARIN 30 MG/0.3 ML INJ SUB-Q SCH (20:00)
[2021-03-21] MEDS ORDERED: dexAMETHasone 4 MG/ML VIAL IV SCH (21:00)
[2021-03-21] MEDS ORDERED: cefTRIAXone/NS 2 GM/100 ML 2 GM/100 ML BAG IV SCH (21:00)
[2021-03-21] MEDS: amLODIPine 10 MG TAB PO SCH (21:15)
[2021-03-21] MEDS: cefTRIAXone/NS 1 GM/50 ML 1 GM/50 ML BAG IV SCH (21:16)
[2021-03-21 21:33] LABS: C-Reactive Protein 14.6 mg/dL (0.00-1.30)
[2021-03-21] MEDS ORDERED: NON-FORMULARY EACH (Simvastatin [Simvastatin] 20 MG Tablet) PO SCH (22:00)
[2021-03-21] MEDS: AZITHROMYCIN/NS 500 MG/250 ML 500 MG/250 ML BAG IV SCH (23:31)
[2021-03-21] MEDS: PRAVASTATIN 40 MG TAB PO SCH (23:32)
[2021-03-21] MEDS: FAMOTIDINE 20 MG TAB PO SCH (23:32)
[2021-03-21] MEDS: POTASSIUM CHLORIDE ER 20 MEQ TAB PO SCH (23:32)
[2021-03-21] MEDS: ACETAMINOPHEN 325 MG TAB PO PRN (23:37)
[2021-03-21] MEDS: INSULIN LISPRO 100 UNIT/ML SUB-Q SCH (23:40)
[2021-03-22] MEDS: FUROSEMIDE 40 MG/4 ML INJ IV SCH ×2 (05:49→18:50)
[2021-03-22 06:26] LABS: Basophils % (Auto) 0.1 % (0.0-1.8); Hematocrit 32.3 % (30.3-42.9); Lymphocytes # (Auto) 0.7 K/mm3 (1.2-5.4); Lymphocytes % (Auto) 4.9 % (13.4-35.0); Mean Corpuscular HGB Conc 34 % (30-34); Mean Corpuscular Volume 91 fl (79-97); Monocytes # (Auto) 0.8 K/mm3 (0.0-0.8); Monocytes % (Auto) 5.5 % (0.0-7.3); Platelet Count 233 K/mm3 (140-440); Red Blood Count 3.58 M/mm3 (3.65-5.03); Red Cell Distribution Width 13.6 % (13.2-15.2)
[2021-03-22 06:52] LABS: Albumin 3.3 g/dL (3.9-5); Calcium 8.5 mg/dL (8.4-10.2)
[2021-03-22] MEDS: glipiZIDE 5 MG TAB PO SCH ×2 (08:35→10:22)
[2021-03-22] MEDS ORDERED: dilTIAZem CD 180 MG CAP PO SCH (10:00)
[2021-03-22] MEDS ORDERED: ENOXAPARIN 40 MG/0.4 ML INJ SUB-Q SCH (10:00)
[2021-03-22] MEDS: dexAMETHasone 4 MG/ML VIAL IV SCH (10:22)
[2021-03-22] MEDS: FAMOTIDINE 20 MG TAB PO SCH ×2 (10:22→23:28)
[2021-03-22] MEDS: amLODIPine 10 MG TAB PO SCH (10:24)
[2021-03-22] MEDS: INSULIN LISPRO 100 UNIT/ML SUB-Q SCH ×4 (10:25→23:31)
[2021-03-22] MEDS: POTASSIUM CHLORIDE ER 20 MEQ TAB PO SCH ×2 (10:35→23:38)
--- NOTE | 2021-03-22 11:32 | Consultation ---
History of Present Illness Consult date: 03/22/21 Consult reason: congestive heart failure History of present illness: This is a 65-year old F with a history of hypertension, diabetes, hyperlipid emia, and chronic tobacco abuse. No prior cardiac history. Patient was brought to this hospital with complaints of neck pain and left should pain. She also complained of shortness of breath and noted mildly febrile, max temperature 99.9 degree F. Chest x-ray shows no evidence of interstitial edema. Labs shows an elevated WBC at 15.3. Serology PCR result is pending. A cardiac consultation has been requested for elevated troponin measurement. Patient denies chest pain. Denies palpitations. An ECG done is sinus rhythm with baseline artifact. Past History Past Medical History: diabetes, hypertension, hyperlipidemia Social history: smoking Medications and Allergies Allergies Allergy/AdvReac Type Severity Reaction Status Date / Time codeine Allergy Unknown Verified 03/22/21 04:43 Penicillins Allergy Unknown Verified 03/22/21 04:43 Home Medications Medication Instructions Recorded Confirmed Last Taken Type Simvastatin 1 tab PO QHS 10/23/13 03/22/21 03/20/21 History dilTIAZem HCl [Diltiazem 24Hr ER] 180 mg PO DAILY 10/23/13 03/22/21 03/20/21 History Cyclobenzaprine [Flexeril 10 MG 10 mg PO TID PRN 09/19/15 03/22/21 03/20/21 History TAB] glipiZIDE [Glucotrol] 5 mg PO QDAY 09/19/15 03/22/21 03/20/21 History 5 mg amLODIPine [Norvasc] 10 mg PO DAILY #30 tab 03/29/16 03/22/21 03/20/21 Rx Diclofenac 1% [Diclofenac 1% 2 gram TP QID PRN #100 gm 08/31/20 03/22/21 03/20/21 Rx topical gel] HYDROcodone/APAP 5-325 [[place]ancock 1 each PO Q6HR PRN #12 tablet 08/31/20 03/22/21 03/20/21 Rx 5-325 mg TAB] Active Meds: Active Medications Acetaminophen (Acetaminophen 325 Mg Tab) 650 mg PO Q4H PRN PRN Reason: Pain MILD(1-3)/Fever >100.5/WAY Last Admin: 03/21/21 23:37 Dose: 650 mg Documented by: Amlodipine Besylate (Amlodipine 10 Mg Tab) 10 mg PO DAILY [facility] Last Admin: 03/22/21 10:24 Dose: 10 mg Documented by: Cyclobenzaprine HCl (Cyclobenzaprine 10 Mg Tab) 10 mg PO TID PRN PRN Reason: Muscle Spasm Dexamethasone (Dexamethasone 4 Mg/Ml Vial) 8 mg IV DAILY [facility] Stop: 03/30/21 10:01 Last Admin: 03/22/21 10:22 Dose: 8 mg Documented by: Diclofenac Sodium (Diclofenac Sodium 1% Topical Gel 100 Gm) 0.4 applic TP QID PRN PRN Reason: Pain Diltiazem HCl (Diltiazem Cd 180 Mg Cap) 180 mg PO DAILY [facility] Last Admin: 03/22/21 10:35 Dose: 180 mg Documented by: Enoxaparin Sodium (Enoxaparin 40 Mg/0.4 Ml Inj) 40 mg SUB-Q QDAY@1000 [facility] Last Admin: 03/22/21 10:21 Dose: 40 mg Documented by: Famotidine (Famotidine 20 Mg Tab) 20 mg PO BID [facility] Last Admin: 03/22/21 10:22 Dose: 20 mg Documented by: Furosemide (Furosemide 40 Mg/4 Ml Inj) 40 mg IV 0600,1800 [facility] Last Admin: 03/22/21 05:49 Dose: Not Given Documented by: Glipizide (Glipizide 5 Mg Tab) 5 mg PO QDAY [facility] Last Admin: 03/22/21 10:22 Dose: 5 mg Documented by: Hydromorphone HCl (Hydromorphone 1 Mg/1 Ml Inj) 0.5 mg IV Q3H PRN PRN Reason: Pain , Severe (7-10) Azithromycin (Zithromax/Ns) 500 mg in 250 mls @ 250 mls/hr IV Q24H [facility] Stop: 03/25/21 21:59 Last Admin: 03/21/21 23:31 Dose: 250 mls/hr Documented by: Ceftriaxone Sodium (Rocephin/Ns 1 Gm/50 Ml) 1 gm in 50 mls @ 100 mls/hr IV Q24H [facility] Stop: 03/25/21 21:29 Last Admin: 03/21/21 21:16 Dose: 100 mls/hr Documented by: Insulin Human Lispro (Insulin Lispro 100 Unit/Ml) 0 unit SUB-Q ACHS [facility]; Protocol Last Admin: 03/22/21 10:25 Dose: 2 unit Documented by: Metoclopramide HCl (Metoclopramide 10 Mg/2 Ml Inj) 10 mg IV Q6H PRN PRN Reason: Nausea And Vomiting Ondansetron HCl (Ondansetron 4 Mg/2 Ml Inj) 4 mg IV Q3H PRN PRN Reason: Nausea And Vomiting Oxycodone/Acetaminophen (Oxycodone /Acetaminophen 5-325mg Tab) 1 tab PO Q6H PRN PRN Reason: Pain, Moderate (4-6) Potassium Chloride (Potassium Chloride Er 20 Meq Tab) 20 meq PO Q12H [facility] Last Admin: 03/22/21 10:35 Dose: 20 meq Documented by: Pravastatin Sodium (Pravastatin 40 Mg Tab) 40 mg PO QHS [facility] Last Admin: 03/21/21 23:32 Dose: 40 mg Documented by: Sodium Chloride (Sodium Chloride 0.9% 10 Ml Flush Syringe) 10 ml IV BID [facility] Last Admin: 03/22/21 10:27 Dose: 10 ml Documented by: Sodium Chloride (Sodium Chloride 0.9% 10 Ml Flush Syringe) 10 ml IV PRN PRN PRN Reason: LINE FLUSH Physical Examination Vital Signs Temp Pulse Resp BP Pulse Ox 99.9 F H 73 20 109/45 94 03/21/21 07:25 03/21/21 07:25 03/21/21 07:25 03/21/21 07:25 03/21/21 07:25 Narrative exam: Deferred due to isolation protocol. General appearance: no acute distress Cardiac: Positive: Reg Rate and Rhythm Results 03/22/21 05:38 03/22/21 05:38 Cardiac Enzymes 03/21/21 03/22/21 03/22/21 Range/Units 21:00 05:38 Unknown AST 39 (5-40) units/L Lactate Dehydrogenase 229 H (91-180) units/L CK-MB (CK-2) 4.0 (0.0-4.0) ng/mL CBC 03/22/21 Range/Units 05:38 WBC 14.0 H (4.5-11.0) K/mm3 RBC 3.58 L (3.65-5.03) M/mm3 Hgb 11.0 (10.1-14.3) gm/dl Hct 32.3 (30.3-42.9) % Plt Count 233 (140-440) K/mm3 Lymph # (Auto) 0.7 L (1.2-5.4) K/mm3 Lea # (Auto) 0.8 (0.0-0.8) K/mm3 Eos # (Auto) 0.0 (0.0-0.4) K/mm3 Baso # (Auto) 0.0 (0.0-0.1) K/mm3 Comprehensive Metabolic Panel 03/21/21 03/22/21 Range/Units 21:00 05:38 Sodium 139 (137-145) mmol/L Potassium 4.4 (3.6-5.0) mmol/L Chloride 107.1 H (98-107) mmol/L Carbon Dioxide 20 L (22-30) mmol/L BUN 29 H (7-17) mg/dL Creatinine 1.0 (0.6-1.2) mg/dL Glucose 143 H 193 H (65-100) mg/dL Calcium 8.5 (8.4-10.2) mg/dL AST 39 (5-40) units/L ALT 33 (7-56) units/L Alkaline Phosphatase 91 (35-129) units/L Total Protein 7.0 (6.3-8.2) g/dL Albumin 3.3 L (3.9-5) g/dL Assessment and Plan NSTEMI Shortness of breath Neck and shoulder pain UTI Acute renal failure Hypertension Diabetes Tobacco abuse Recommendations: Echo for LVEF assessment. Medical therapy to include therapeutic lovenox, aspirin, beta blockers, and statin therapy for underlying CAD. Further cardiac workup depends on clinical course.
[2021-03-22] MEDS: ASPIRIN 81 MG TAB CHEW PO SCH (13:33)
--- NOTE | 2021-03-22 15:09 | Progress Note ---
Assessment and Plan (1) SIRS (systemic inflammatory response syndrome) Current Visit: Yes Status: Acute Plan to address problem: Clinical picture consistent with systemic inflammatory response syndrome White count is 15,300 Urine WBCs at 38 (2) Pneumonia Current Visit: Yes Status: Acute Qualifiers: Lung location: unspecified part of lung Plan to address problem: Patient initiated on IV ceftriaxone and Zithromax (3) Suspected COVID-19 virus infection Current Visit: Yes Status: Acute Plan to address problem: Coronavirus PCR in a.m. (4) DIMITRIOS (acute kidney injury) Current Visit: Yes Status: Acute Plan to address problem: Secondary to vasomotor nephropathy IV normal saline for 12 hours Recheck creatinine levels (5) CHF (congestive heart failure) Current Visit: Yes Status: Acute Qualifiers: Heart failure type: combined systolic and diastolic Plan to address problem: [place] 3683 Echocardiogram for ejection fraction and valve function (6) Elevated troponin Current Visit: Yes Status: Acute Plan to address problem: Check CK and CK-MB Cardiology consult Heparin was not started (7) UTI (urinary tract infection) Current Visit: Yes Status: Acute Qualifiers: Urinary tract infection type: acute cystitis Plan to address problem: Patient on IV Rocephin (8) DVT prophylaxis Current Visit: Yes Status: Acute Plan to address problem: Patient on anticoagulation and GI prophylaxis Daily clinical course: 03/22/21: pending covid test, follow clinically Subjective Date of service: 03/22/21 Objective - Constitutional Vitals: Vital Signs - 12hr 03/22/21 03/22/21 03/22/21 04:50 10:24 11:35 Temperature 98.0 F 98.3 F Pulse Rate 67 69 Respiratory 22 22 Rate Blood Pressure 118/65 127/66 Blood Pressure 118/58 [Right] O2 Sat by Pulse 92 94 Oximetry 03/22/21 14:10 Temperature Pulse Rate Respiratory Rate Blood Pressure Blood Pressure [Right] O2 Sat by Pulse 95 Oximetry - Labs CBC & Chem 7: 03/22/21 05:38 03/22/21 05:38 Labs: Abnormal lab results 03/21/21 03/21/21 03/21/21 Range/Units 14:16 21:00 21:00 WBC (4.5-11.0) K/mm3 RBC (3.65-5.03) M/mm3 Lymph % (Auto) (13.4-35.0) % Lymph # (Auto) (1.2-5.4) K/mm3 Seg Neutrophils % (40.0-70.0) % Seg Neutrophils # (1.8-7.7) K/mm3 D-Dimer 742.42 H (0-234) ng/mlDDU Chloride (98-107) mmol/L Carbon Dioxide (22-30) mmol/L BUN (7-17) mg/dL Glucose 143 H (65-100) mg/dL POC Glucose (70-105) mg/dL Hemoglobin A1c (4-6) % Ferritin (10.0-200.0) ng/mL Lactate Dehydrogenase 229 H (91-180) units/L Total Creatine Kinase (30-135) units/L Troponin T 0.700 H* D (0.00-0.029) ng/mL C-Reactive Protein 14.60 H (0.00-1.30) mg/dL Albumin (3.9-5) g/dL 03/21/21 03/21/21 03/22/21 Range/Units 21:00 23:29 05:38 WBC 14.0 H (4.5-11.0) K/mm3 RBC 3.58 L (3.65-5.03) M/mm3 Lymph % (Auto) 4.9 L (13.4-35.0) % Lymph # (Auto) 0.7 L (1.2-5.4) K/mm3 Seg Neutrophils % 89.5 H (40.0-70.0) % Seg Neutrophils # 12.5 H (1.8-7.7) K/mm3 D-Dimer (0-234) ng/mlDDU Chloride (98-107) mmol/L Carbon Dioxide (22-30) mmol/L BUN (7-17) mg/dL Glucose (65-100) mg/dL POC Glucose 152 H (70-105) mg/dL Hemoglobin A1c (4-6) % Ferritin 333.0 H (10.0-200.0) ng/mL Lactate Dehydrogenase (91-180) units/L Total Creatine Kinase (30-135) units/L Troponin T (0.00-0.029) ng/mL C-Reactive Protein (0.00-1.30) mg/dL Albumin (3.9-5) g/dL 03/22/21 03/22/21 03/22/21 Range/Units 05:38 05:38 07:31 WBC (4.5-11.0) K/mm3 RBC (3.65-5.03) M/mm3 Lymph % (Auto) (13.4-35.0) % Lymph # (Auto) (1.2-5.4) K/mm3 Seg Neutrophils % (40.0-70.0) % Seg Neutrophils # (1.8-7.7) K/mm3 D-Dimer (0-234) ng/mlDDU Chloride 107.1 H (98-107) mmol/L Carbon Dioxide 20 L (22-30) mmol/L BUN 29 H (7-17) mg/dL Glucose 193 H (65-100) mg/dL POC Glucose 176 H (70-105) mg/dL Hemoglobin A1c 6.9 H (4-6) % Ferritin (10.0-200.0) ng/mL Lactate Dehydrogenase (91-180) units/L Total Creatine Kinase (30-135) units/L Troponin T (0.00-0.029) ng/mL C-Reactive Protein (0.00-1.30) mg/dL Albumin 3.3 L (3.9-5) g/dL 03/22/21 03/22/21 Range/Units 11:33 Unknown WBC (4.5-11.0) K/mm3 RBC (3.65-5.03) M/mm3 Lymph % (Auto) (13.4-35.0) % Lymph # (Auto) (1.2-5.4) K/mm3 Seg Neutrophils % (40.0-70.0) % Seg Neutrophils # (1.8-7.7) K/mm3 D-Dimer (0-234) ng/mlDDU Chloride (98-107) mmol/L Carbon Dioxide (22-30) mmol/L BUN (7-17) mg/dL Glucose (65-100) mg/dL POC Glucose 252 H (70-105) mg/dL Hemoglobin A1c (4-6) % Ferritin (10.0-200.0) ng/mL Lactate Dehydrogenase (91-180) units/L Total Creatine Kinase 167 H (30-135) units/L Troponin T 0.549 H* D (0.00-0.029) ng/mL C-Reactive Protein (0.00-1.30) mg/dL Albumin (3.9-5) g/dL HEART Score - HEART Score Age: > 65 Risk factors: 1-2 risk factors Troponin: Troponin T 0.549 ng/mL (0.00-0.029) H* D 03/22/21 Unknown Troponin: > 3x normal limit - Critical Actions Critical Actions: 4-6 pts:12-16.6% risk of adverse cardiac event. Should be admitted
[2021-03-22 16:08] LABS: Creatine Kinase MB 4.9 ng/mL (0.0-4.0)
[2021-03-22] MEDS ORDERED: METOPROLOL TARTRATE 50 MG TAB PO SCH (22:00)
[2021-03-22] MEDS ORDERED: ENOXAPARIN 100 MG/1 ML INJ SUB-Q SCH (22:00)
[2021-03-22] MEDS: PRAVASTATIN 40 MG TAB PO SCH (23:27)
[2021-03-22] MEDS: ENOXAPARIN 80 MG/0.8 ML INJ SUB-Q SCH (23:28)
[2021-03-22] MEDS: cefTRIAXone/NS 1 GM/50 ML 1 GM/50 ML BAG IV SCH (23:29)
[2021-03-22] MEDS: AZITHROMYCIN/NS 500 MG/250 ML 500 MG/250 ML BAG IV SCH (23:29)
[2021-03-23 00:18] LABS: Creatine Kinase MB 5.7 ng/mL (0.0-4.0)
[2021-03-23] MEDS: NITROGLYCERIN 0.2 MG PATCH 24HR TD SCH (06:41)
[2021-03-23] MEDS: FUROSEMIDE 40 MG/4 ML INJ IV SCH ×2 (06:43→17:58)
--- NOTE | 2021-03-23 09:06 | Progress Note ---
Assessment and Plan NSTEMI Abnormal ECG sinus rhythm with possible inferior SD of undetermined age Shortness of breath -resolved negative COVID serology Neck and shoulder pain UTI Acute renal failure - resolved Hypertension Diabetes Tobacco abuse An echocardiogram reports 4 chamber dilation, with moderate MR, and moderate to severe TR, RVSP 52 mmHg. Recommendations: Continue medical therapy to include nitrates, lovenox, aspirin, beta blockers, and statin therapy for underlying CAD. Will proceed with a cardiac cath for ischemic evaluation for abnormal troponin measurements. Subjective Date of service: 03/23/21 Interval history: Patient is sitting up in the bedside chair. She denies chest pain and unusual shortness of breath. PCR serology is negative. Objective Vital Signs Temp Pulse Resp BP Pulse Ox 03/23/21 06:41 53 L 104/52 03/23/21 06:29 104/52 03/23/21 06:28 98.1 F 18 104/52 03/23/21 02:00 97 03/22/21 23:31 97.9 F 61 18 112/62 98 03/22/21 17:45 97.7 F 67 22 119/55 97 03/22/21 14:10 95 03/22/21 11:35 98.3 F 69 22 127/66 94 03/22/21 10:24 118/65 - Physical Examination General: No Apparent Distress HEENT: Positive: PERRL Neck: Positive: trachea midline Cardiac: Positive: Reg Rate and Rhythm Lungs: Positive: Decreased Breath Sounds Neuro: Positive: Grossly Intact - Labs and Meds Cardiac Enzymes 03/22/21 03/22/21 03/22/21 Range/Units 14:44 23:34 Unknown CK-MB (CK-2) 4.9 H 5.7 H 4.0 (0.0-4.0) ng/mL
[2021-03-23] MEDS: ENOXAPARIN 80 MG/0.8 ML INJ SUB-Q SCH ×2 (10:03→23:42)
[2021-03-23] MEDS: dexAMETHasone 4 MG/ML VIAL IV SCH (10:04)
[2021-03-23] MEDS: ASPIRIN 81 MG TAB CHEW PO SCH (10:04)
[2021-03-23] MEDS: FAMOTIDINE 20 MG TAB PO SCH ×2 (10:04→23:46)
[2021-03-23] MEDS: glipiZIDE 5 MG TAB PO SCH (10:04)
[2021-03-23] MEDS: INSULIN LISPRO 100 UNIT/ML SUB-Q SCH ×4 (10:05→23:42)
[2021-03-23] MEDS: POTASSIUM CHLORIDE ER 20 MEQ TAB PO SCH (10:30)
[2021-03-23] MEDS: amLODIPine 10 MG TAB PO SCH (10:30)
[2021-03-23] MEDS: METOPROLOL TARTRATE 25 MG TAB PO SCH ×2 (10:31→23:44)
--- NOTE | 2021-03-23 16:07 | Progress Note ---
Assessment and Plan (1) SIRS (systemic inflammatory response syndrome) Current Visit: Yes Status: Acute Plan to address problem: Clinical picture consistent with systemic inflammatory response syndrome White count is 15,300 Urine WBCs at 38 (2) Pneumonia Current Visit: Yes Status: Acute Qualifiers: Lung location: unspecified part of lung Plan to address problem: Patient initiated on IV ceftriaxone and Zithromax (3) Suspected COVID-19 virus infection Current Visit: Yes Status: Acute Plan to address problem: Coronavirus PCR in a.m. (4) DIMITRIOS (acute kidney injury) Current Visit: Yes Status: Acute Plan to address problem: Secondary to vasomotor nephropathy IV normal saline for 12 hours Recheck creatinine levels (5) CHF (congestive heart failure) Current Visit: Yes Status: Acute Qualifiers: Heart failure type: combined systolic and diastolic Plan to address problem: BNP is elevated BNP is 3683 Echocardiogram for ejection fraction and valve function (6) Elevated troponin Current Visit: Yes Status: Acute Plan to address problem: Check CK and CK-MB Cardiology consult Heparin was not started (7) UTI (urinary tract infection) Current Visit: Yes Status: Acute Qualifiers: Urinary tract infection type: acute cystitis Plan to address problem: Patient on IV Rocephin (8) DVT prophylaxis Current Visit: Yes Status: Acute Plan to address problem: Patient on anticoagulation and GI prophylaxis Daily clinical course: 03/22/21: pending covid test, follow clinically 03/23/21: cardiac catheterization in the morning for further evaluation of possible non-ST elevation myocardial infarction Subjective Date of service: 03/23/21 Objective - Constitutional Vitals: Vital Signs - 12hr 03/23/21 03/23/21 03/23/21 06:28 06:29 06:41 Temperature 98.1 F Pulse Rate 53 L Respiratory 18 Rate Blood Pressure 104/52 104/52 104/52 O2 Sat by Pulse Oximetry 03/23/21 03/23/21 03/23/21 10:30 10:31 14:00 Temperature Pulse Rate 58 L 58 L Respiratory Rate Blood Pressure 98/50 98/50 O2 Sat by Pulse 97 Oximetry - Labs CBC & Chem 7: 03/22/21 05:38 03/22/21 05:38 Labs: Abnormal lab results 03/22/21 03/22/21 03/22/21 Range/Units 14:44 17:43 21:22 POC Glucose 184 H 201 H (70-105) mg/dL Total Creatine Kinase 191 H (30-135) units/L CK-MB (CK-2) 4.9 H (0.0-4.0) ng/mL Troponin T 0.474 H* (0.00-0.029) ng/mL 03/22/21 03/23/21 03/23/21 Range/Units 23:34 08:02 12:07 POC Glucose 169 H 201 H (70-105) mg/dL Total Creatine Kinase 198 H (30-135) units/L CK-MB (CK-2) 5.7 H (0.0-4.0) ng/mL Troponin T (0.00-0.029) ng/mL HEART Score - HEART Score Age: > 65 Risk factors: 1-2 risk factors Troponin: Troponin T 0.549 ng/mL (0.00-0.029) H* D 03/22/21 Unknown Troponin: > 3x normal limit - Critical Actions Critical Actions: 4-6 pts:12-16.6% risk of adverse cardiac event. Should be admitted
[2021-03-23] MEDS: AZITHROMYCIN/NS 500 MG/250 ML 500 MG/250 ML BAG IV SCH (23:43)
[2021-03-23] MEDS: cefTRIAXone/NS 1 GM/50 ML 1 GM/50 ML BAG IV SCH (23:44)
[2021-03-23] MEDS: PRAVASTATIN 40 MG TAB PO SCH (23:47)
[2021-03-24] MEDS: POTASSIUM CHLORIDE ER 20 MEQ TAB PO SCH (00:18)
[2021-03-24 04:38] LABS: Basophils % (Auto) 0.2 % (0.0-1.8); Hematocrit 32.3 % (30.3-42.9); Hemoglobin 10.9 gm/dl (10.1-14.3); Lymphocytes # (Auto) 0.8 K/mm3 (1.2-5.4); Mean Corpuscular HGB Conc 34 % (30-34); Mean Corpuscular Volume 91 fl (79-97); Monocytes # (Auto) 0.8 K/mm3 (0.0-0.8); Monocytes % (Auto) 5.8 % (0.0-7.3); Platelet Count 263 K/mm3 (140-440); Red Blood Count 3.55 M/mm3 (3.65-5.03); Red Cell Distribution Width 13.8 % (13.2-15.2)
[2021-03-24 04:48] LABS: INR 1.11 (0.87-1.13)
[2021-03-24 05:01] LABS: Calcium 8.5 mg/dL (8.4-10.2)
[2021-03-24] MEDS: FUROSEMIDE 40 MG/4 ML INJ IV SCH (06:00)
[2021-03-24] MEDS: NITROGLYCERIN 0.2 MG PATCH 24HR TD SCH (06:00)
[2021-03-24] MEDS ORDERED: ASPIRIN 81 MG TAB CHEW ONE (07:26)
[2021-03-24] MEDS ORDERED: NITROGLYCERIN SYRINGE 3 ML ONE (07:27)
[2021-03-24] MEDS ORDERED: HEPARIN 10,000 UNITS/10 ML VIAL ONE (07:27)
[2021-03-24] MEDS ORDERED: MIDAZOLAM 2 MG/2 ML INJ ONE (07:27)
[2021-03-24] MEDS ORDERED: HEPARIN/NS 5000 UNIT/500ML 500 ML IR ONE (07:27)
[2021-03-24] MEDS ORDERED: VERAPAMIL 5 MG/2 ML INJ ONE ×2 (07:27→17:43)
[2021-03-24] MEDS ORDERED: LIDOCAINE (2%) 20 MG/1 ML VIAL 20 ML MDV INFILTRATI ONE (07:27)
[2021-03-24] MEDS ORDERED: SODIUM CHLORIDE 0.9% 500 ML 500 ML ONE ×2 (07:42→17:59)
[2021-03-24] MEDS: INSULIN LISPRO 100 UNIT/ML SUB-Q SCH ×4 (08:00→22:51)
[2021-03-24] MEDS: ENOXAPARIN 80 MG/0.8 ML INJ SUB-Q SCH (10:00)
[2021-03-24] MEDS: METOPROLOL TARTRATE 25 MG TAB PO SCH ×2 (10:00→21:43)
[2021-03-24] MEDS: amLODIPine 10 MG TAB PO SCH (10:00)
[2021-03-24] MEDS: ASPIRIN 81 MG TAB CHEW PO SCH (10:00)
[2021-03-24] MEDS: glipiZIDE 5 MG TAB PO SCH (10:01)
[2021-03-24] MEDS: FAMOTIDINE 20 MG TAB PO SCH ×2 (10:01→21:42)
--- NOTE | 2021-03-24 15:29 | Progress Note ---
Assessment and Plan (1) SIRS (systemic inflammatory response syndrome) Current Visit: Yes Status: Acute Plan to address problem: Clinical picture consistent with systemic inflammatory response syndrome White count is 15,300 Urine WBCs at 38 (2) Pneumonia Current Visit: Yes Status: Acute Qualifiers: Lung location: unspecified part of lung Plan to address problem: Patient initiated on IV ceftriaxone and Zithromax (3) Suspected COVID-19 virus infection Current Visit: Yes Status: Acute Plan to address problem: Coronavirus PCR in a.m. (4) DIMITRIOS (acute kidney injury) Current Visit: Yes Status: Acute Plan to address problem: Secondary to vasomotor nephropathy IV normal saline for 12 hours Recheck creatinine levels (5) CHF (congestive heart failure) Current Visit: Yes Status: Acute Qualifiers: Heart failure type: combined systolic and diastolic Plan to address problem: BNP is elevated BNP is 3683 Echocardiogram for ejection fraction and valve function (6) Elevated troponin Current Visit: Yes Status: Acute Plan to address problem: Check CK and CK-MB Cardiology consult Heparin was not started (7) UTI (urinary tract infection) Current Visit: Yes Status: Acute Qualifiers: Urinary tract infection type: acute cystitis Plan to address problem: Patient on IV Rocephin (8) DVT prophylaxis Current Visit: Yes Status: Acute Plan to address problem: Patient on anticoagulation and GI prophylaxis Daily clinical course: 03/22/21: pending covid test, follow clinically 03/23/21: cardiac catheterization in the morning for further evaluation of possible non-ST elevation myocardial infarction Subjective Date of service: 03/24/21 Objective - Constitutional Vitals: Vital Signs - 12hr 03/24/21 03/24/21 03/24/21 04:12 06:00 11:47 Temperature 98.8 F 97.4 F L Pulse Rate 61 61 57 L Respiratory 18 18 Rate Blood Pressure 125/69 125/69 117/65 O2 Sat by Pulse 96 95 Oximetry - Labs CBC & Chem 7: 03/24/21 04:17 03/24/21 04:17 Labs: Abnormal lab results 03/23/21 03/23/21 03/24/21 Range/Units 17:12 20:42 04:17 WBC 14.0 H (4.5-11.0) K/mm3 RBC 3.55 L (3.65-5.03) M/mm3 Lymph % (Auto) 6.0 L (13.4-35.0) % Lymph # (Auto) 0.8 L (1.2-5.4) K/mm3 Seg Neutrophils % 88.0 H (40.0-70.0) % Seg Neutrophils # 12.3 H (1.8-7.7) K/mm3 Potassium (3.6-5.0) mmol/L Chloride (98-107) mmol/L Carbon Dioxide (22-30) mmol/L BUN (7-17) mg/dL Glucose (65-100) mg/dL POC Glucose 303 H 277 H (70-105) mg/dL 03/24/21 03/24/21 Range/Units 04:17 12:36 WBC (4.5-11.0) K/mm3 RBC (3.65-5.03) M/mm3 Lymph % (Auto) (13.4-35.0) % Lymph # (Auto) (1.2-5.4) K/mm3 Seg Neutrophils % (40.0-70.0) % Seg Neutrophils # (1.8-7.7) K/mm3 Potassium 5.1 H (3.6-5.0) mmol/L Chloride 107.7 H (98-107) mmol/L Carbon Dioxide 20 L (22-30) mmol/L BUN 51 H (7-17) mg/dL Glucose 181 H (65-100) mg/dL POC Glucose 151 H (70-105) mg/dL HEART Score - HEART Score Age: > 65 Risk factors: 1-2 risk factors Troponin: Troponin T 0.549 ng/mL (0.00-0.029) H* D 03/22/21 Unknown Troponin: > 3x normal limit - Critical Actions Critical Actions: 4-6 pts:12-16.6% risk of adverse cardiac event. Should be admitted
[2021-03-24] MEDS ORDERED: fentaNYL 100 MCG/2 ML INJ ONE (17:43)
[2021-03-24] MEDS ORDERED: HEPARIN/NS 5000 UNIT/500ML 1,000 ML IR ONE (17:43)
[2021-03-24] MEDS: fentaNYL 100 MCG/2 ML INJ ONE ×2 (18:17→18:22)
[2021-03-24] MEDS: MIDAZOLAM 2 MG/2 ML INJ ONE ×2 (18:17→18:22)
[2021-03-24] MEDS: LIDOCAINE (2%) 20 MG/1 ML VIAL 20 ML MDV INFILTRATI ONE ×2 (18:18→18:22)
[2021-03-24] MEDS: HEPARIN 10,000 UNITS/10 ML VIAL ONE ×2 (18:19→18:30)
[2021-03-24] MEDS: NITROGLYCERIN SYRINGE 3 ML ONE ×2 (18:19→18:23)
[2021-03-24] MEDS ORDERED: TIROFIBAN/NS 12,500 MCG/250 ML BAG IV ONE (18:41)
[2021-03-24] MEDS ORDERED: TICAGRELOR 90 MG TAB ONE (18:51)
--- NOTE | 2021-03-24 19:00 | Event Note ---
Date: 03/24/21 Cardiac catheterization was performed via the right radial approach, no complications. We found a 90% stenosis of the distal right coronary artery with associated thrombus, consistent with the infarct lesion. We performed successful angioplasty and stenting with deployment of a single, 3.0 mm drug-eluting stent with excellent angiographic result. Patient will be treated with intravenous Aggrastat for 18 hours, and continued with Brilinta and baby aspirin on eventual discharge.
[2021-03-24] MEDS ORDERED: HYDROcodone/ACETAMINOPHEN 5-325 MG TAB PO PRN (19:01)
[2021-03-24] MEDS ORDERED: ALUM-MAG HYDROXIDE-SIMETHICONE 200-200-20MG/5ML ORAL LIQD 30 ML ONE (19:02)
[2021-03-24] MEDS ORDERED: SODIUM CHLORIDE 0.9% 1000 ML 1,000 ML IV SCH (19:15)
[2021-03-24] MEDS ORDERED: TIROFIBAN/NS 12,500 MCG/250 ML BAG IV SCH (20:00)
--- NOTE | 2021-03-24 21:30 | Cardiac Catherization Report ---
DATE OF SERVICE: 03/24/2021 CARDIAC CATHETERIZATION AND CORONARY ANGIOPLASTY REPORT REASON FOR PROCEDURE: The patient is a 65-year-old woman who presented with an acute febrile illness, further evaluation also revealed an abnormal EKG and elevated cardiac enzymes, suggestive of an intercurrent, non-ST elevation myocardial infarction. After resolution of her fever, she was recommended to undergo a cardiac catheterization. PROCEDURES: 1. Left heart catheterization. 2. Selective left and right coronary angiography. 3. Left ventricular angiography. 4. Sedation time start 1816, end 1843. 5. Coronary angioplasty and stenting of the distal right coronary artery. DESCRIPTION OF PROCEDURE: The patient was prepped and draped in a sterile fashion after informed consent. The right radial cath site was prepped and draped after negative Kwaku's test. Right radial artery was entered using Seldinger technique followed by placement of a 6-Swiss hydrophilic sheath. Routine radial cocktail was administered via the sheath. Selective left and right coronary angiography was performed using #3.5 left Efrain and #4 right Efrain. The right Efrain was used for left ventricular angiography. The angiograms were reviewed. HEMODYNAMICS: Left ventricular end diastolic pressure was 25-30, following coronary angiography. Ascending aortic pressure 120/65. There was no significant pressure gradient on pullback across the aortic valve. CORONARY ANGIOGRAPHY: The left main coronary artery was free of significant disease. The left anterior descending artery and its diagonal branches contained mild diffuse irregularities. A large ramus intermedius artery contained mild luminal irregularities. The circumflex artery contained mild irregularities of its proximal and mid AV groove segments. There was a 50-60% stenosis of the distal circumflex leading to a terminal medium sized obtuse marginal. The right coronary artery was dominant. This vessel contained diffuse atherosclerosis of its mid segment, with up to 40-50% luminal stenosis of the mid segment. Following that, there was a 90% stenosis of the distal vessel, midway between the acute margin and the right posterior descending branch. This lesion was associated with a luminal filling defect consistent with intraluminal thrombus. This was the likely infarct related lesion. There was a very mild left ventricular systolic dysfunction with ejection fraction 45-50%. CORONARY ANGIOPLASTY: After review of the angiograms, we proceeded with ad hoc angioplasty of the distal right coronary artery infarct lesion. We used a #1 right Amplatz guiding catheter and advanced to the right coronary ostium. A 0.014 inch Blow Torch Burner 50 wire was then introduced into the vessel, successfully across the lesional segment. In the primary stenting maneuver, we deployed a 3.0 x 8 mm Resolute drug-eluting stent, across the lesion and inflated to optimal pressures. Following stenting, there was an excellent angiographic result, zero residual stenosis and VERITO 3 flow maintained down the vessel. Procedure was well tolerated by the patient and there were no complications. The diffuse mild atherosclerosis of the mid vessel was not treated and is recommended for medical management. The catheters and wires were removed, sheath removed and hemostasis achieved using a TR band. The patient was returned to the postprocedure unit in stable condition. There were no complications. CONCLUSION: 1. Multivessel coronary artery disease as reported above. 2. Very mild left ventricular systolic dysfunction, ejection fraction 45-50%. 3. Successful angioplasty and stenting of the severe distal stenosis of the right coronary artery, which was the infarct related lesion. RECOMMENDATIONS: The patient will be placed on intravenous Aggrastat therapy for treatment of residual intraluminal thrombus in the distal vessel. Dual oral antiplatelet therapy will be commenced with a baby aspirin and Brilinta. TID: [id number] RECEIPT: [id number] [facility]
[2021-03-24] MEDS: PRAVASTATIN 40 MG TAB PO SCH (21:43)
[2021-03-24] MEDS: HYDROmorphone 1 MG/1 ML INJ IV PRN (21:52)
[2021-03-24] MEDS: AZITHROMYCIN/NS 500 MG/250 ML 500 MG/250 ML BAG IV SCH (23:15)
[2021-03-24] MEDS: cefTRIAXone/NS 1 GM/50 ML 1 GM/50 ML BAG IV SCH (23:16)
[2021-03-25] MEDS: HYDROmorphone 1 MG/1 ML INJ IV PRN (05:09)
[2021-03-25] MEDS: FUROSEMIDE 40 MG/4 ML INJ IV SCH ×3 (05:12→18:51)
[2021-03-25 06:04] LABS: Basophils # (Auto) 0.1 K/mm3 (0.0-0.1); Basophils % (Auto) 0.6 % (0.0-1.8); Hematocrit 32.4 % (30.3-42.9); Hemoglobin 10.7 gm/dl (10.1-14.3); Lymphocytes # (Auto) 1.5 K/mm3 (1.2-5.4); Lymphocytes % (Auto) 12.6 % (13.4-35.0); Mean Corpuscular HGB Conc 33 % (30-34); Mean Corpuscular Volume 90 fl (79-97); Monocytes # (Auto) 1.3 K/mm3 (0.0-0.8); Monocytes % (Auto) 10.5 % (0.0-7.3); Platelet Count 347 K/mm3 (140-440); Red Blood Count 3.62 M/mm3 (3.65-5.03); Red Cell Distribution Width 13.4 % (13.2-15.2)
[2021-03-25 06:26] LABS: Calcium 8.1 mg/dL (8.4-10.2)
[2021-03-25] MEDS: ACETAMINOPHEN 325 MG TAB PO PRN ×2 (06:54→21:56)
[2021-03-25] MEDS: INSULIN LISPRO 100 UNIT/ML SUB-Q SCH ×4 (08:00→23:07)
--- NOTE | 2021-03-25 08:47 | Event Note ---
Date: 03/25/21 We will discharge the patient today if cleared by cardiology
[2021-03-25] MEDS: TICAGRELOR 90 MG TAB PO SCH ×2 (09:40→21:58)
[2021-03-25] MEDS: glipiZIDE 5 MG TAB PO SCH (09:59)
[2021-03-25] MEDS: ASPIRIN 81 MG TAB CHEW PO SCH (09:59)
[2021-03-25] MEDS: FAMOTIDINE 20 MG TAB PO SCH ×2 (09:59→21:55)
[2021-03-25] MEDS: amLODIPine 10 MG TAB PO SCH (10:00)
[2021-03-25] MEDS: METOPROLOL TARTRATE 25 MG TAB PO SCH ×2 (10:01→21:58)
--- NOTE | 2021-03-25 10:38 | Progress Note ---
Assessment and Plan - Patient Problems (1) Non-ST elevation myocardial infarction (NSTEMI) Current Visit: Yes Status: Acute Plan to address problem: Patient presented with non-ST elevation myocardial infarction in the setting of an acute febrile illness. Cardiac catheterization revealed severe stenosis of the distal right coronary artery treated with a single drug-eluting stent with excellent angiographic result. Due to residual distal right coronary artery thrombus, we will continue Aggrastat therapy for 48 hours. In this setting, anticipated discharge will be Sunday. Subjective Date of service: 03/25/21 Interval history: Patient is comfortable, no acute distress, tolerating Aggrastat infusion. Due to residual distal thrombus in the right coronary artery, we will extend Aggrastat infusion therapy for 48 hours post intervention. Objective Vital Signs Temp Pulse Resp BP Pulse Ox 03/25/21 10:01 56 L 03/25/21 07:39 20 139/70 03/25/21 06:54 20 03/25/21 05:39 20 03/25/21 05:09 18 03/25/21 03:34 98.6 F 57 L 18 135/70 95 03/25/21 02:00 98 03/24/21 23:43 98.4 F 60 18 117/59 96 03/24/21 21:52 20 03/24/21 21:43 64 141/66 03/24/21 20:15 64 14 141/66 97 03/24/21 20:00 58 L 22 148/65 97 03/24/21 19:45 58 L 22 134/68 97 03/24/21 19:30 57 L 21 146/73 97 03/24/21 19:15 61 22 141/70 97 03/24/21 18:50 98.9 F 57 L 23 143/65 97 03/24/21 14:00 98 03/24/21 11:47 97.4 F L 57 L 18 117/65 95 - Physical Examination General: No Apparent Distress HEENT: Positive: PERRL Neck: Positive: trachea midline Cardiac: Positive: Reg Rate and Rhythm Lungs: Positive: Decreased Breath Sounds Neuro: Positive: Grossly Intact Abdomen: Positive: Soft Skin: Positive: Clear Extremities: Absent: edema - Labs and Meds CBC 03/25/21 Range/Units 05:29 WBC 12.0 H (4.5-11.0) K/mm3 RBC 3.62 L (3.65-5.03) M/mm3 Hgb 10.7 (10.1-14.3) gm/dl Hct 32.4 (30.3-42.9) % Plt Count 347 (140-440) K/mm3 Lymph # (Auto) 1.5 (1.2-5.4) K/mm3 [place] # (Auto) 1.3 H (0.0-0.8) K/mm3 Eos # (Auto) 0.0 (0.0-0.4) K/mm3 Baso # (Auto) 0.1 (0.0-0.1) K/mm3 Comprehensive Metabolic Panel 03/25/21 Range/Units 05:29 Sodium 138 (137-145) mmol/L Potassium 4.5 (3.6-5.0) mmol/L Chloride 106.8 (98-107) mmol/L Carbon Dioxide 21 L (22-30) mmol/L BUN 45 H (7-17) mg/dL Creatinine 1.1 (0.6-1.2) mg/dL Glucose 186 H (65-100) mg/dL Calcium 8.1 L (8.4-10.2) mg/dL
--- NOTE | 2021-03-25 16:38 | Progress Note ---
Assessment and Plan (1) Non-ST elevation myocardial infarction (NSTEMI) Current Visit: Yes Status: Acute Plan to address problem: Patient presented with non-ST elevation myocardial infarction in the setting of an acute febrile illness. Cardiac catheterization revealed severe stenosis of the distal right coronary artery treated with a single drug-eluting stent with excellent angiographic result. Due to residual distal right coronary artery thrombus, continue Aggrastat the rapy for 48 hours. In this setting, anticipated discharge will be Sunday. (2) SIRS (systemic inflammatory response syndrome) Current Visit: Yes Status: Acute Plan to address problem: Clinical picture consistent with systemic inflammatory response syndrome (3) Pneumonia Current Visit: Yes Status: Acute Qualifiers: Lung location: unspecified part of lung Plan to address problem: Patient initiated on IV ceftriaxone and Zithromax (4) Suspected COVID-19 virus infection Current Visit: Yes Status: Acute Plan to address problem: Coronavirus PCR negative (5) DIMITRIOS (acute kidney injury) Current Visit: Yes Status: Acute Plan to address problem: Secondary to vasomotor nephropathy Corrected (6) CHF (congestive heart failure) Current Visit: Yes Status: Acute Qualifiers: Heart failure type: combined systolic and diastolic Plan to address problem: BNP is elevated BNP is 3683 Echocardiogram for ejection fraction and valve function (7) Elevated troponin-NSTEMI Current Visit: Yes Status: Acute Plan to address problem: Patient had cardiac cath and is on Aggrastat for right ventricular thrombus Stent in the RCA (8) UTI (urinary tract infection) Current Visit: Yes Status: Acute Qualifiers: Urinary tract infection type: acute cystitis Plan to address problem: Patient on IV Rocephin (9) DVT prophylaxis Current Visit: Yes Status: Acute Plan to address problem: Patient on anticoagulation and GI prophylaxis Subjective Date of service: 03/25/21 Principal diagnosis: NSTEMI, SIRS, Interval history: 65-year-old female with history of hypertension diabetes and hyperlipidemia comes to the emergency room for diffuse upper back pain and neck pain and also chest pain. Patient describes the pain as dull aching pain. Chest pain is diffuse. Patient also complains of having chills and shortness of breath but no vomiting or diarrhea Hospital course 03/22/21: pending covid test, follow clinically 03/23/21: cardiac catheterization in the morning for further evaluation of possible non-ST elevation myocardial infarction 03/24/2021 Patient had cardiac cath with stent in RCA Patient started on IV Aggrastat for RV thrombus and s/p stent 03/25/2021 Cardiology recommendation was to continue Aggrastat for 48 hours till March 27, 2021 Patient has right ventricular thrombus Patient is s/p PCI--- right coronary artery Objective - Constitutional Vitals: Vital Signs - 12hr 03/25/21 03/25/21 03/25/21 05:09 05:39 06:54 Temperature Pulse Rate Respiratory 18 20 20 Rate Blood Pressure O2 Sat by Pulse Oximetry 03/25/21 03/25/21 03/25/21 07:39 10:00 10:01 Temperature Pulse Rate 56 L Respiratory 20 Rate Blood Pressure 139/70 O2 Sat by Pulse 97 Oximetry 03/25/21 03/25/21 11:52 12:45 Temperature 97.6 F Pulse Rate 64 Respiratory 20 Rate Blood Pressure 105/81 O2 Sat by Pulse 96 99 Oximetry General appearance: Present: no acute distress, well-nourished - EENT Eyes: PERRL, EOM intact ENT: hearing intact, clear oral mucosa Ears: bilateral: normal - Neck Neck: supple, normal ROM - Respiratory Respiratory effort: normal Respiratory: bilateral: CTA - Breasts Breasts: normal - Cardiovascular Heart rate: 78 Rhythm: regular Heart Sounds: Present: S1 & S2. Absent: gallop, rub Extremities: pulses intact, No edema, normal color, Full ROM - Gastrointestinal General gastrointestinal: Present: soft, non-tender, non-distended, normal bowel sounds - Genitourinary Female genitourinary: normal - Integumentary Integumentary: clear, warm, dry - Musculoskeletal Musculoskeletal: 1, strength equal bilaterally - Neurologic Neurologic: moves all extremities - Psychiatric Psychiatric: memory intact, appropriate mood/affect, intact judgment & insight - Labs CBC & Chem 7: 03/26/21 04:35 03/25/21 05:29 Labs: Abnormal lab results 03/24/21 03/25/21 03/25/21 Range/Units 16:52 05:29 05:29 WBC 12.0 H (4.5-11.0) K/mm3 RBC 3.62 L (3.65-5.03) M/mm3 Lymph % (Auto) 12.6 L (13.4-35.0) % [place] % (Auto) 10.5 H (0.0-7.3) % [place] # (Auto) 1.3 H (0.0-0.8) K/mm3 Seg Neutrophils % 76.3 H (40.0-70.0) % Seg Neutrophils # 9.1 H (1.8-7.7) K/mm3 Carbon Dioxide 21 L (22-30) mmol/L BUN 45 H (7-17) mg/dL Glucose 186 H (65-100) mg/dL POC Glucose 114 H (70-105) mg/dL Calcium 8.1 L (8.4-10.2) mg/dL Troponin T 0.706 H* D (0.00-0.029) ng/mL HEART Score - HEART Score Age: > 65 Risk factors: 1-2 risk factors Troponin: Troponin T 0.706 ng/mL (0.00-0.029) H* D 03/25/21 05:29 Troponin: > 3x normal limit - Critical Actions Critical Actions: 4-6 pts:12-16.6% risk of adverse cardiac event. Should be admitted
[2021-03-25] MEDS: PRAVASTATIN 40 MG TAB PO SCH (21:58)
[2021-03-25] MEDS: cefTRIAXone/NS 1 GM/50 ML 1 GM/50 ML BAG IV SCH (22:29)
[2021-03-25] MEDS: AZITHROMYCIN/NS 500 MG/250 ML 500 MG/250 ML BAG IV SCH (22:34)
[2021-03-25] MEDS ORDERED: AZITHROMYCIN/NS 500 MG/250 ML 500 MG/250 ML BAG IV SCH (23:00)
[2021-03-25] MEDS ORDERED: cefTRIAXone/NS 1 GM/50 ML 1 GM/50 ML BAG IV SCH (23:00)
[2021-03-26] MEDS: NITROGLYCERIN 0.2 MG PATCH 24HR TD SCH (05:37)
[2021-03-26 06:11] LABS: Hematocrit 32.5 % (30.3-42.9); Hemoglobin 11.1 gm/dl (10.1-14.3)
[2021-03-26] MEDS: FUROSEMIDE 40 MG/4 ML INJ IV SCH ×2 (06:23→17:52)
[2021-03-26] MEDS: INSULIN LISPRO 100 UNIT/ML SUB-Q SCH ×4 (08:50→22:35)
[2021-03-26] MEDS: ACETAMINOPHEN 325 MG TAB PO PRN ×2 (10:12→22:32)
[2021-03-26] MEDS: glipiZIDE 5 MG TAB PO SCH (10:13)
[2021-03-26] MEDS: TICAGRELOR 90 MG TAB PO SCH ×2 (10:13→22:34)
[2021-03-26] MEDS: ASPIRIN 81 MG TAB CHEW PO SCH (10:13)
[2021-03-26] MEDS: METOPROLOL TARTRATE 25 MG TAB PO SCH (10:13)
[2021-03-26] MEDS: amLODIPine 10 MG TAB PO SCH (10:13)
[2021-03-26] MEDS: FAMOTIDINE 20 MG TAB PO SCH ×2 (10:14→22:33)
--- NOTE | 2021-03-26 10:17 | Progress Note ---
Assessment and Plan 1. Acute non-ST elevation myocardial infarction 2. Status post left heart cath with PCI and drug-eluting stent to the distal right coronary artery. 3. Community-acquired pneumonia 4. Rule out COVID-19 viral infection 5. Acute atrial fibrillation with a rapid ventricular response Plan. Patient is currently on Aggrastat which will continue but will switch to IV heparin after 48 hours of Aggrastat. Amlodipine will be discontinued metoprolol will be increased to 50 mg twice a day. We will continue dual antiplatelet therapy Subjective Date of service: 03/26/21 Principal diagnosis: NSTEMI, SIRS, Interval history: Patiernt denies ant chest pains fever or chills today. She was noticed to have gone in to Atrial fib with RVR. Patient remains asymptomatic Objective Vital Signs Temp Pulse Resp BP Pulse Ox 03/26/21 08:50 96 03/26/21 08:11 97.4 F L 63 18 123/55 95 03/26/21 05:37 57 L 03/26/21 05:28 97.9 F 57 L 18 116/54 98 03/26/21 00:09 97.9 F 62 18 113/62 94 03/25/21 22:00 99 03/25/21 21:01 97 03/25/21 20:48 97.6 F 64 18 109/45 95 03/25/21 16:24 98.0 F 66 20 119/51 94 03/25/21 12:45 99 03/25/21 11:52 97.6 F 64 20 105/81 96 - Physical Examination General: No Apparent Distress HEENT: Positive: PERRL Neck: Positive: trachea midline Cardiac: Positive: Regular Rate, irregularly irregular, S1/S2, PMI, Dilated, Laterally Displaced Lungs: Positive: clear to auscultation, No Wheeze, Rales, Rhonchi Neuro: Positive: Grossly Intact Abdomen: Positive: Soft Skin: Positive: Clear Extremities: Absent: edema - Labs and Meds CBC 03/26/21 Range/Units 04:35 Hgb 11.1 (10.1-14.3) gm/dl Hct 32.5 (30.3-42.9) % Plt Count 333 (140-440) K/mm3 - Telemetry EKG Rhythm: Atrial Fibrillation
[2021-03-26] MEDS ORDERED: METOPROLOL TARTRATE 25 MG TAB PO SCH (12:30)
--- NOTE | 2021-03-26 14:57 | Progress Note ---
Assessment and Plan (1) SIRS (systemic inflammatory response syndrome) Current Visit: Yes Status: Acute Plan to address problem: Clinical picture consistent with systemic inflammatory response syndrome White count is 15,300 Urine WBCs at 38 (2) Pneumonia Current Visit: Yes Status: Acute Qualifiers: Lung location: unspecified part of lung Plan to address problem: Patient initiated on IV ceftriaxone and Zithromax (3) Suspected COVID-19 virus infection Current Visit: Yes Status: Acute Plan to address problem: Coronavirus PCR in a.m. (4) DIMITRIOS (acute kidney injury) Current Visit: Yes Status: Acute Plan to address problem: Secondary to vasomotor nephropathy IV normal saline for 12 hours Recheck creatinine levels (5) CHF (congestive heart failure) Current Visit: Yes Status: Acute Qualifiers: Heart failure type: combined systolic and diastolic Plan to address problem: BNP is elevated BNP is 3683 Echocardiogram for ejection fraction and valve function (6) Elevated troponin Current Visit: Yes Status: Acute Plan to address problem: Check CK and CK-MB Cardiology consult Heparin was not started (7) UTI (urinary tract infection) Current Visit: Yes Status: Acute Qualifiers: Urinary tract infection type: acute cystitis Plan to address problem: Patient on IV Rocephin (8) DVT prophylaxis Current Visit: Yes Status: Acute Plan to address problem: Patient on anticoagulation and GI prophylaxis Daily clinical course: 03/22/21: pending covid test, follow clinically 03/23/21: cardiac catheterization in the morning for further evaluation of possible non-ST elevation myocardial infarction 03/24/2021 Patient had cardiac cath with stent in RCA Patient started on IV Aggrastat for RV thrombus and s/p stent 03/25/2021 Cardiology recommendation was to continue Aggrastat for 48 hours till March 27, 2021 Patient has right ventricular thrombus Patient is s/p PCI--- right coronary artery 03/26/21; Patient presented with non-ST elevation myocardial infarction in the setting of an acute febrile illness. Cardiac catheterization revealed severe stenosis of the distal right coronary artery treated with a single drug-eluting stent with excellent angiographic result. Due to residual distal right coronary artery thrombus, we will continue Aggrastat therapy for 48 hours. In this setting, anticipated discharge will be Sunday morning. Subjective Date of service: 03/26/21 Principal diagnosis: NSTEMI, SIRS, Objective - Constitutional Vitals: Vital Signs - 12hr 03/26/21 03/26/21 03/26/21 05:28 05:37 08:11 Temperature 97.9 F 97.4 F L Pulse Rate 57 L 57 L 63 Respiratory 18 18 Rate Blood Pressure 116/54 123/55 O2 Sat by Pulse 98 95 Oximetry 03/26/21 03/26/21 03/26/21 08:50 10:12 11:31 Temperature Pulse Rate 131 H Respiratory 20 Rate Blood Pressure 105/62 O2 Sat by Pulse 96 96 Oximetry - Labs CBC & Chem 7: 03/26/21 04:35 03/25/21 05:29 Labs: Abnormal lab results 03/25/21 03/25/21 03/26/21 Range/Units 17:59 22:11 08:08 POC Glucose 161 H 153 H 148 H (70-105) mg/dL 03/26/21 Range/Units 11:28 POC Glucose 173 H (70-105) mg/dL HEART Score - HEART Score Age: > 65 Risk factors: 1-2 risk factors Troponin: Troponin T 0.706 ng/mL (0.00-0.029) H* D 03/25/21 05:29 Troponin: > 3x normal limit - Critical Actions Critical Actions: 4-6 pts:12-16.6% risk of adverse cardiac event. Should be admitted
[2021-03-26] MEDS: METOPROLOL TARTRATE 50 MG TAB PO SCH (22:34)
[2021-03-27] MEDS: FUROSEMIDE 40 MG/4 ML INJ IV SCH ×2 (06:19→18:40)
[2021-03-27] MEDS: NITROGLYCERIN 0.2 MG PATCH 24HR TD SCH (06:27)
[2021-03-27] MEDS: INSULIN LISPRO 100 UNIT/ML SUB-Q SCH ×4 (07:57→21:39)
[2021-03-27] MEDS: FAMOTIDINE 20 MG TAB PO SCH ×2 (09:26→21:38)
[2021-03-27] MEDS: TICAGRELOR 90 MG TAB PO SCH ×2 (09:26→21:38)
[2021-03-27] MEDS: ASPIRIN 81 MG TAB CHEW PO SCH (09:26)
[2021-03-27] MEDS: glipiZIDE 5 MG TAB PO SCH (09:26)
[2021-03-27] MEDS: METOPROLOL TARTRATE 50 MG TAB PO SCH ×2 (09:27→21:41)
--- NOTE | 2021-03-27 09:42 | Progress Note ---
Assessment and Plan 1. Acute non-ST elevation myocardial infarction 2. Status post left heart cath with PCI and drug-eluting stent to the distal right coronary artery. 3. Community-acquired pneumonia 4. Rule out COVID-19 viral infection 5. Acute atrial fibrillation with a rapid ventricular response Plan. Patient is currently on Aggrastat which will continue but will switch to IV heparin after 48 hours of Aggrastat. Patient will be we will continue dual antiplatelet therapy patient's metoprolol currently on hold secondary to hypotension. We will start IV digoxin for control of ventricular rate atrial fibrillation. Subjective Date of service: 03/27/21 Principal diagnosis: NSTEMI, SIRS, Interval history: Patient is stable this morning she denies any shortness of breath or chest pains. Events of last night reveal patient to be hypotensive but asymptomatic harm medication of metoprolol was held this morning and as a result EKG shows atrial free and still with a rapid ventricular response. Objective Vital Signs Temp Pulse Pulse Resp BP BP Pulse Ox 03/27/21 08:32 98.4 F 114 H 17 100/73 98 03/27/21 08:11 93 03/27/21 08:01 98.7 F 80 18 74/52 96 03/27/21 07:59 98.7 F 56 L 18 78/42 96 03/27/21 06:27 130 H 102/65 03/27/21 04:44 97.7 F 138 H 20 102/65 98 03/26/21 23:45 97.5 F L 116 H 20 102/65 96 03/26/21 22:34 126 H 122/61 03/26/21 22:00 96 03/26/21 20:52 96 03/26/21 20:13 97.8 F 99 H 18 122/61 96 03/26/21 17:00 97.5 F L 128 H 18 96/64 95 03/26/21 11:31 131 H 105/62 96 03/26/21 10:12 20 03/26/21 10:00 138 H 99 - Physical Examination General: No Apparent Distress HEENT: Positive: PERRL, Normocephaly, Mucus Membranes Moist Neck: Positive: trachea midline. Negative: JVD/HJR Cardiac: Positive: irregularly irregular, S1/S2, S3, PMI, Dilated, Laterally Displaced Lungs: Positive: clear to auscultation, No Wheeze, Rales, Rhonchi Neuro: Positive: Grossly Intact Abdomen: Positive: Soft Skin: Positive: Clear Extremities: Absent: edema
[2021-03-27] MEDS: DIGOXIN 0.5 MG/2 ML INJ IV SCH ×4 (10:25→16:20)
--- NOTE | 2021-03-27 11:59 | Progress Note ---
Assessment and Plan --Non-ST elevation myocardial infarction (NSTEMI) Patient presented with non-ST elevation myocardial infarction in the setting of an acute febrile illness. Cardiac catheterization revealed severe stenosis of the distal right coronary artery treated with a single drug-eluting stent Cardiology recommended to continue guideline directed medical therapy for coronary artery disease including dual oral antiplatelet therapy post coronary s tenting. --Paroxysmal atrial fibrillation developed following cardiac cath, patient today placed on heparin drip Continue to follow cardiology recommendation -- CHF (congestive heart failure) with EF 40-45% BNP is elevated 3683 Echocardiogram showed slightly reduced EF, cardiology following -- SIRS (systemic inflammatory response syndrome) Clinical picture consistent with systemic inflammatory response syndrome White count is 15,300, Urine WBCs at 38 -- Pneumonia, Patient initiated on IV ceftriaxone and Zithromax -- Suspected COVID-19 virus infection, ruled out with neg test -- DIMITRIOS (acute kidney injury) Secondary to vasomotor nephropathy IV normal saline for 12 hours Recheck creatinine levels --UTI (urinary tract infection) Patient on IV Rocephin -- DVT prophylaxis Patient on anticoagulation and GI prophylaxis Daily clinical course: 03/22/21: pending covid test, follow clinically, continue empiric antibiotics 03/23/21: Covid test is negative. Continue antibiotics. Cardiology following for elevated troponin and recommended cardiac catheterization in the morning for further evaluation of possible non-ST elevation myocardial infarction 03/24/2021 Patient had cardiac cath with stent in RCA Patient started on IV Aggrastat for RV thrombus and s/p stent 03/25/2021 Cardiology recommendation was to continue Aggrastat for 48 hours till March 27, 2021 Patient has right ventricular thrombus Patient is s/p PCI--- right coronary artery 03/26/21; Patient presented with non-ST elevation myocardial infarction in the setting of an acute febrile illness. Cardiac catheterization revealed severe stenosis of the distal right coronary artery treated with a single drug-eluting stent with excellent angiographic result. Due to residual distal right coronary artery thrombus, we will continue Aggrastat therapy for 48 hours. In this setting, anticipated discharge will be Sunday. 03/27/21: Patient is currently on Aggrastat which will continue but will switch to IV heparin after 48 hours of Aggrastat. Patient will be we will continue dual antiplatelet therapy patient's metoprolol currently on hold secondary to hypotension. We will start IV digoxin for control of ventricular rate atrial fibrillation. Subjective Date of service: 03/27/21 Principal diagnosis: NSTEMI, SIRS, Objective - Constitutional Vitals: Vital Signs - 12hr 03/27/21 03/27/21 03/27/21 04:44 06:27 07:59 Temperature 97.7 F 98.7 F Pulse Rate 138 H 130 H 56 L Respiratory 20 18 Rate Blood Pressure 102/65 102/65 78/42 Blood Pressure [Right] O2 Sat by Pulse 98 96 Oximetry 03/27/21 03/27/21 03/27/21 08:01 08:11 08:32 Temperature 98.7 F 98.4 F Pulse Rate 80 114 H Respiratory 18 17 Rate Blood Pressure 74/52 Blood Pressure 100/73 [Right] O2 Sat by Pulse 96 93 98 Oximetry 03/27/21 03/27/21 03/27/21 10:25 11:39 11:48 Temperature 98.3 F Pulse Rate 134 H 63 62 Respiratory 18 Rate Blood Pressure 119/66 103/51 104/77 Blood Pressure [Right] O2 Sat by Pulse 95 Oximetry - Labs CBC & Chem 7: 03/28/21 04:46 03/28/21 04:46 Labs: Abnormal lab results 03/26/21 03/26/21 03/27/21 Range/Units 16:56 21:46 07:52 POC Glucose 129 H 149 H 140 H (70-105) mg/dL 03/27/21 Range/Units 11:36 POC Glucose 179 H (70-105) mg/dL HEART Score - HEART Score Age: > 65 Risk factors: 1-2 risk factors Troponin: Troponin T 0.706 ng/mL (0.00-0.029) H* D 03/25/21 05:29 Troponin: > 3x normal limit - Critical Actions Critical Actions: 4-6 pts:12-16.6% risk of adverse cardiac event. Should be admitted
[2021-03-27] MEDS: ACETAMINOPHEN 325 MG TAB PO PRN (21:38)
[2021-03-28 05:35] LABS: Basophils # (Auto) 0.1 K/mm3 (0.0-0.1); Basophils % (Auto) 0.4 % (0.0-1.8); Eosinophils # (Auto) 0.3 K/mm3 (0.0-0.4); Eosinophils % (Auto) 3.1 % (0.0-4.3); Hematocrit 35.2 % (30.3-42.9); Lymphocytes # (Auto) 2.4 K/mm3 (1.2-5.4); Lymphocytes % (Auto) 21.3 % (13.4-35.0); Mean Corpuscular HGB Conc 34 % (30-34); Mean Corpuscular Volume 90 fl (79-97); Monocytes # (Auto) 1.2 K/mm3 (0.0-0.8); Monocytes % (Auto) 10.5 % (0.0-7.3); Platelet Count 389 K/mm3 (140-440); Red Blood Count 3.93 M/mm3 (3.65-5.03); Red Cell Distribution Width 13.9 % (13.2-15.2)
[2021-03-28 05:53] LABS: Calcium 8.5 mg/dL (8.4-10.2)
[2021-03-28] MEDS: NITROGLYCERIN 0.2 MG PATCH 24HR TD SCH (06:26)
[2021-03-28] MEDS: FUROSEMIDE 40 MG/4 ML INJ IV SCH (06:29)
[2021-03-28] MEDS: INSULIN LISPRO 100 UNIT/ML SUB-Q SCH ×2 (07:30→12:53)
[2021-03-28] MEDS: glipiZIDE 5 MG TAB PO SCH (09:39)
[2021-03-28] MEDS: FAMOTIDINE 20 MG TAB PO SCH (09:39)
[2021-03-28] MEDS: ASPIRIN 81 MG TAB CHEW PO SCH (09:39)
[2021-03-28] MEDS: TICAGRELOR 90 MG TAB PO SCH (09:39)
[2021-03-28] MEDS: METOPROLOL TARTRATE 50 MG TAB PO SCH (10:00)
--- NOTE | 2021-03-28 13:28 | Progress Note ---
Assessment and Plan - Patient Problems (1) Non-ST elevation myocardial infarction (NSTEMI) Current Visit: Yes Status: Acute Plan to address problem: Patient presented with non-ST elevation myocardial infarction in the setting of an acute febrile illness. Cardiac catheterization revealed severe stenosis of the distal right coronary artery treated with a single drug-eluting stent with excellent angiographic result. We will continue guideline directed medical therapy for coronary artery disease including dual oral antiplatelet therapy post coronary stenting. (2) Paroxysmal atrial fibrillation Current Visit: Yes Status: Acute Plan to address problem: The patient suffered transient atrial fibrillation over the past 2 days, has now returned to a stable sinus rhythm. We will initiate oral anticoagulant therapy with Eliquis 2.5 mg twice daily. We will switch her antiplatelet therapy to baby aspirin and Plavix in order to reduce the bleeding risk on triple therapy. Subjective Principal diagnosis: NSTEMI, SIRS, Interval history: Patient is comfortable, no acute distress, looks and feels well. Over the weekend, she was noted with atrial fibrillation, which has now resolved, she has a stable sinus rhythm at 60. Objective Vital Signs Temp Pulse Pulse Resp BP Pulse Ox 03/28/21 10:00 52 L 52 L 110/48 97 03/28/21 08:06 95 03/28/21 07:57 97.7 F 52 L 18 110/48 97 03/28/21 06:26 59 L 03/28/21 03:36 97.4 F L 54 L 16 114/46 98 03/27/21 23:40 97.5 F L 56 L 16 112/52 96 03/27/21 22:00 96 03/27/21 21:41 63 115/42 03/27/21 19:25 97.9 F 70 18 115/42 96 03/27/21 16:20 64 03/27/21 16:02 97.5 F L 60 18 106/50 94 03/27/21 14:39 64 104/75 - Physical Examination General: No Apparent Distress HEENT: Positive: PERRL, Normocephaly, Mucus Membranes Moist Neck: Positive: trachea midline. Negative: JVD/HJR Cardiac: Positive: Reg Rate and Rhythm Lungs: Positive: Decreased Breath Sounds Neuro: Positive: Grossly Intact Abdomen: Positive: Soft Skin: Positive: Clear Extremities: Absent: edema - Labs and Meds CBC 03/28/21 Range/Units 04:46 WBC 11.3 H (4.5-11.0) K/mm3 RBC 3.93 (3.65-5.03) M/mm3 Hgb 12.0 (10.1-14.3) gm/dl Hct 35.2 (30.3-42.9) % Plt Count 389 (140-440) K/mm3 Lymph # (Auto) 2.4 (1.2-5.4) K/mm3 [place] # (Auto) 1.2 H (0.0-0.8) K/mm3 Eos # (Auto) 0.3 (0.0-0.4) K/mm3 Baso # (Auto) 0.1 (0.0-0.1) K/mm3 Comprehensive Metabolic Panel 03/28/21 Range/Units 04:46 Sodium 138 (137-145) mmol/L Potassium 4.1 (3.6-5.0) mmol/L Chloride 99.0 (98-107) mmol/L Carbon Dioxide 25 (22-30) mmol/L BUN 35 H (7-17) mg/dL Creatinine 1.2 (0.6-1.2) mg/dL Glucose 139 H (65-100) mg/dL Calcium 8.5 (8.4-10.2) mg/dL
--- NOTE | 2021-03-28 13:55 | Electrocardiograph Report ---
[facility] Test Date: 2021-03-21 Test Time: 07:36:58 Pat Name: CARLIE TOLEDO Department: Room: A457 Gender: F Corporate Legal Secretary: LORIN : 1955 Requested By: SANDRA PATRICIO Order Number: [id number] Reading MD: Gilberto Ward Measurements Intervals [place] Rate: 70 P: 84 AL: 198 QRS: -12 QRSD: 112 T: 11 QT: 414 QTc: 446 Interpretive Statements Sinus rhythm Poor quality ECG Inferior infarct, undetermined age, possibly subacute No previous ECG available for comparison Electronically Signed On 03-28-2021 13:55:04 EDT by Gilberto Ward
[2021-03-28] MEDS ORDERED: APIXABAN 2.5 MG TAB PO SCH (14:00)
--- NOTE | 2021-03-28 14:12 | Discharge Summary ---
Providers - Providers Date of Admission: 03/22/21 08:56 Date of discharge: 03/28/21 Attending physician: DOLORES FARFAN 03/21/21 21:40 Consult to Physician [CONS] Routine Comment: Consulting Provider: CHINTAN KAPLAN Physician Instructions: Reason For Exam: chf 03/24/21 Consult to Cardiac Rehabilitation [CONS] Routine Reason For Exam: post pci Primary care physician: TIE IN HAND Hospitalization Condition: Stable Disposition: 01 HOME / SELF CARE / HOMELESS Final Discharge Diagnosis (Prints w/discharge instructions): --Non-ST elevation myocardial infarction (NSTEMI). --Paroxysmal atrial fibrillation. -- acute systolic CHF (congestive heart failure) with EF 40-45%. -- SIRS (systemic inflammatory response syndrome). -- Pneumonia, CAP. -- Suspected COVID-19 virus infection, ruled out with neg test. -- DIMITRIOS (acute kidney injury). --UTI (urinary tract infection) Time spent for discharge: 34 minutes Core Measure Documentation - Palliative Care Palliative Care/ Comfort Measures: Not Applicable - Core Measures Any of the following diagnoses?: acute OR, heart failure - Acute OR Discharge Requirements Aspirin at discharge: Yes FARIDEH/ARB for LVSD if EF <40%: Yes Beta libertad at discharge: Yes Statin for LDL = or >100 mg/dl on DC: Yes - Heart Failure Discharge Requirements FARIDEH/ARB for LVSD if EF <40%: Not Applicable Beta libertad at discharge: Yes Exam - Physical Exam Narrative exam: GENERAL: well-developed and well-nourished elderly obese white female lying on bed appeared to be in no discomfort. HEENT: Normocephalic. Atraumatic. No conjunctival congestion or icterus. Patient has moist mucous membranes. NECK: Supple. Trachea midline. CHEST/LUNGS: Clear to auscultated bilaterally, breathing nonlabored. No wheezes crackles or rhonchi. HEART/CARDIOVASCULAR: Regular in rate and rhythm. S1 and S2 positive. ABDOMEN: Abdomen is soft, nontender. Patient has normal bowel sounds. SKIN: There is no rash. Warm and dry. NEURO: No focal motor deficit. Follows command. MUSCULOSKELETAL: No joint effusion or tenderness. EXTRIMITY: No edema, no cyanosis or clubbing. PSYCH: Cooperative. - Constitutional Vitals: Temp Pulse Resp BP Pulse Ox 97.7 F 52 L 18 110/48 97 03/28/21 07:57 03/28/21 10:00 03/28/21 07:57 03/28/21 10:00 03/28/21 10:00 Plan Activity: advance as tolerated Weight Bearing Status: Non-Weight Bearing Diet: low fat, low salt Special Instructions: record daily BP diary Follow up with: CECILE HAWKINS MD [Primary Care Provider] - 3-5 Days CHINTAN KAPLAN MD [Staff Physician] - 7 Days Prescriptions: AtorvaSTATin [Lipitor] 80 mg PO QHS #30 tablet Aspirin [Aspirin BABY CHEW TAB] 81 mg PO QDAY #30 tab.chew Apixaban [Eliquis] 2.5 mg PO Q12HR #60 tablet Metoprolol [Lopressor TAB] 50 mg PO BID #60 tablet Famotidine [Pepcid] 20 mg PO BID #60 tablet Clopidogrel [Plavix] 75 mg PO QDAY #30 tablet
--- NOTE | 2021-03-28 14:17 | Electrocardiograph Report ---
[facility] Test Date: 2021-03-23 Test Time: 08:06:08 Pat Name: CARLIE TOLEDO Department: Room: A457 Gender: F [employer]er Black [employer] White: JOSE ANTONIO : 1955 Requested By: GILBERTO KAPLAN Order Number: [id number] Reading MD: Gilberto Kaplan Measurements Intervals [place] Rate: 53 P: [place]: QRS: -10 QRSD: 103 T: -12 QT: 449 QTc: 428 Interpretive Statements Marked sinus bradycardia, with occasional PACs Inferior infarct, age indeterminate Low voltage QRS Compared to ECG 03/21/2021 07:36:58 Sinus rate has slowed PACs are now evident Electronically Signed On 03-28-2021 14:17:11 EDT by Gilberto Kaplan
[2021-03-28 14:53] VITALS: BP 125/40
[2021-03-28 16:45] LABS: Hematocrit 36.8 % (30.3-42.9); Hemoglobin 12.6 gm/dl (10.1-14.3); Mean Corpuscular HGB Conc 34 % (30-34); Mean Corpuscular Volume 88 fl (79-97); Platelet Count 457 K/mm3 (140-440); Red Blood Count 4.16 M/mm3 (3.65-5.03); Red Cell Distribution Width 13.9 % (13.2-15.2)
[2021-03-28 16:56] LABS: INR 0.97 (0.87-1.13); Partial Thromboplastin Time 32.8 Sec. (24.2-36.6)
[2021-03-29] MEDS ORDERED: CLOPIDOGREL 75 MG TAB PO SCH (10:00)
--- NOTE | 2021-03-29 11:05 | Electrocardiograph Report ---
[facility] Test Date: 2021-03-26 Test Time: 09:10:27 Pat Name: CARLIE TOLEDO Department: Room: A457 1 Gender: F Investigations Chief: : 1955 Requested By: DOLORES FARFAN Order Number: [id number] Reading MD: Gilberto Ward Measurements Intervals [place] Rate: 126 P: [place]: QRS: -10 QRSD: 105 T: 187 QT: 324 QTc: 473 Interpretive Statements Atrial fibrillation with rapid ventricular rate ST depression, consider anterior ischemia Inferior infarct, old Compared to ECG 03/23/2021 08:06:08 Rapid atrial fibrillation has replaced sinus bradycardia ST depression is now evident in the anterior precordial leads Electronically Signed On 03-29-2021 11:04:33 EDT by Gilberto Ward
== END 2021-03-28 17:00 | disposition home or self-care (01) | DRG 246 ==
LOC: ED 07:06 → 3A 15:22 → OBSVTOIN 03-22 08:56 → 3A 03-23 01:04 → 4A 03-24 20:16
PROVIDERS: ADMIT Internal Medicine; ATTEND Internal Medicine
PROC: 4A023N7 Measurement of Cardiac Sampling and Pressure, Left Heart, Percutaneous Approach (ICD-10-PCS; principal; 2021-03-24)
PROC: 027034Z Dilation of Coronary Artery, One Artery with Drug-eluting Intraluminal Device, Percutaneous Approach (ICD-10-PCS; 2021-03-24)
PROC: B211YZZ Fluoroscopy of Multiple Coronary Arteries using Other Contrast (ICD-10-PCS; 2021-03-24)
PROC: B215YZZ Fluoroscopy of Left Heart using Other Contrast (ICD-10-PCS; 2021-03-24)
DX: I21.4 Non-ST elevation (NSTEMI) myocardial infarction (principal); J18.9 Pneumonia, unspecified organism; N17.0 Acute kidney failure with tubular necrosis; I50.41 Acute combined systolic (congestive) and diastolic (congestive) heart failure; N39.0 Urinary tract infection, site not specified; N17.8 Other acute kidney failure; R65.10 Systemic inflammatory response syndrome (SIRS) of non-infectious origin without acute organ dysfunction; Z20.822 Contact with and (suspected) exposure to COVID-19; E78.00 Pure hypercholesterolemia, unspecified; Z87.891 Personal history of nicotine dependence; E78.5 Hyperlipidemia, unspecified; E11.9 Type 2 diabetes mellitus without complications; Z90.49 Acquired absence of other specified parts of digestive tract; I11.0 Hypertensive heart disease with heart failure; I48.91 Unspecified atrial fibrillation; I48.0 Paroxysmal atrial fibrillation
CPT/HCPCS: 36415; 71046; 71250; 74176; 80048; 80053; 80061; 80076; 81001; 82140; 82550; 82553; 82565; 82728; 82947; 82962; 83036; 83615; 83690; 83880; 84145; 84484; 85014; 85018; 85025; 85027; 85049; 85379; 85610; 85730; 86140; 87040; 87086; 92928; 93005; 93306; 93458; 94760; G0378; A9270-GY; C1769; C1874; C1887; C1894; C9600; J0456; J0696; J1100; J1160; J1170; J1644; J1650; J1815; J1940; J1956; J2250; J3010; J3246; J7030; J7040; Q9967; U0003

== ENCOUNTER 2021-04-04 17:24 | Emergency (ER) | payer MEDICARE ==
[2021-04-04 17:32] VITALS: BP 145/74
--- NOTE | 2021-04-04 17:36 | Event Note ---
ED Screening Note ED Screening Note: [place] LAST 2 W AGO- DC LAST WEEK RX ON PLAVIX AND ELOQUIS; [facility] STAT[facility] FAMILY CALLED EMS [place] ON SUNDAY SHE WAS DIZZY AND FELL VS WERE NORMAL- SO THEY WOULD NOT BRING HER TO ER SHE HAS ONGOING DIZZINESS; BLOODY NOSE;TEARFUL/LESS ACTIVE DAUGHTER SHANIQUA---[phone] PMH STENT CHF OBESE HTN HLPD DM MRSA HX TUBAL DM MED MOOD STABILIZER SMOKED UP TO 2 WEEKS AGO ASTHMA THE FAMILY CALLED HER NILES FLOWERS - WHO SENT HER HERE This initial assessment/diagnostic orders/clinical plan/treatment(s) is/are subject to change based on patients health status, clinical progression and re- assessment by fellow clinical providers in the ED. Further treatment and workup at subsequent clinical providers discretion. Patient/guardian urged not to elope from the ED as their condition may be serious if not clinically assessed and managed. Initial orders include: LABS CT 12 LEAD
--- NOTE | 2021-04-04 18:01 | Emergency Department Report ---
ED Syncope HPI - General Chief Complaint: Dizziness Stated Complaint: BLOOD TOO THIN Time Seen by Provider: 04/04/21 17:30 - History of Present Illness Initial Comments: Patient presented secondary to being dizzy and falling. She had actually been seen by EMS and evaluated. Vitals were normal yesterday and decision was made to not transport. Patient has had ongoing nosebleeds. She has fallen. She was referred here because she is on 3 different blood thinners. Patient had a recent heart attack And was treated at this facility. She was discharged on Eliquis, Plavix, and aspirin. She did hit her head when she fell. She has had ongoing problems with intermittent bloody noses. She does feel somewhat lightheaded. There is no bleeding from other sites. She has no neck pain or back pain. She has not complained of a headache. She states that she really does not remember what happened. She just remembers falling. She states that she did not feel dizzy. She does feel somewhat lightheaded now. It should be noted that she called her regular physician who told her to come here for evaluation. - Related Data Allergies/Adverse Reactions: Allergies codeine Allergy (Verified 03/22/21 04:43) Unknown Penicillins Allergy (Verified 03/22/21 04:43) Unknown Home Medications: Ambulatory Orders glipiZIDE [Glucotrol] 5 mg PO QDAY 09/19/15 Apixaban [Eliquis] 2.5 mg PO Q12HR #60 tablet 03/28/21 Aspirin [Aspirin BABY CHEW TAB] 81 mg PO QDAY #30 tab.chew 03/28/21 AtorvaSTATin [Lipitor] 80 mg PO QHS #30 tablet 03/28/21 Clopidogrel [Plavix] 75 mg PO QDAY #30 tablet 03/28/21 Famotidine [Pepcid] 20 mg PO BID #60 tablet 03/28/21 Metoprolol [Lopressor TAB] 50 mg PO BID #60 tablet 03/28/21 ED Review of Systems ROS: Stated complaint: BLOOD TOO THIN Other details as noted in HPI Comment: All other systems reviewed and negative Constitutional: denies: fever Eyes: denies: eye pain ENT: denies: throat pain Respiratory: denies: cough Cardiovascular: denies: chest pain Endocrine: denies: unexplained weight loss Gastrointestinal: denies: abdominal pain Genitourinary: denies: hematuria Musculoskeletal: denies: back pain Skin: denies: rash Neurological: denies: headache Hematological/Lymphatic: easy bruising ED Past Medical Hx - Past Medical History Hx Hypertension: Yes Hx Heart Attack/AMI: Yes Hx Congestive Heart Failure: No Hx Diabetes: Yes Hx Arthritis: Yes (left arm) Hx Asthma: No Hx COPD: No Hx HIV: No Additional medical history: HIGH CHOLESTEROL. OBESITY - Surgical History Hx Cholecystectomy: Yes Additional Surgical History: hysterectomy - Family History Family history: hypertension - Social History Smoking Status: Former Smoker Substance Use Type: None - Medications Home Medications: Home Medications Medication Instructions Recorded Confirmed Last Taken Type glipiZIDE [Glucotrol] 5 mg PO QDAY 09/19/15 03/22/21 03/20/21 History 5 mg Apixaban [Eliquis] 2.5 mg PO Q12HR #60 tablet 03/28/21 Unknown Rx Aspirin [Aspirin BABY CHEW TAB] 81 mg PO QDAY #30 tab.chew 03/28/21 Unknown Rx AtorvaSTATin [Lipitor] 80 mg PO QHS #30 tablet 03/28/21 Unknown Rx Clopidogrel [Plavix] 75 mg PO QDAY #30 tablet 03/28/21 Unknown Rx Famotidine [Pepcid] 20 mg PO BID #60 tablet 03/28/21 Unknown Rx Metoprolol [Lopressor TAB] 50 mg PO BID #60 tablet 03/28/21 Unknown Rx ED Physical Exam - General Limitations: No Limitations, Other ( Pulse ox is noted and normal.) General appearance: alert, in no apparent distress - Head Head exam: Present: normocephalic, other ( there are old bruises noted to the forehead and zygoma areas) - Eye Eye exam: Present: PERRL, EOMI. Absent: scleral icterus - ENT ENT exam: Present: normal exam, normal orophraynx, normal external ear exam - Neck Neck exam: Present: normal inspection, full ROM. Absent: tenderness - Respiratory Respiratory exam: Present: normal lung sounds bilaterally. Absent: respiratory distress - Cardiovascular Cardiovascular Exam: Present: regular rate, normal rhythm - GI/Abdominal GI/Abdominal exam: Present: soft. Absent: distended - Extremities Exam Extremities exam: Present: normal capillary refill, other ( superficial abrasions are noted) - Back Exam Back exam: Absent: CVA tenderness (R), CVA tenderness (L) - Neurological Exam Neurological exam: Present: alert, oriented X3, CN II-XII intact, abnormal gait ( off balance and mildly ataxic). Absent: motor sensory deficit - Psychiatric Psychiatric exam: Present: normal affect, other ( tearful) - Skin Skin exam: Present: warm, dry ED Course Vital Signs 04/04/21 17:29 Temperature 98.4 F Pulse Rate 69 Respiratory 16 Rate Blood Pressure 145/74 O2 Sat by Pulse 95 Oximetry - Reevaluation(s) Reevaluation #1: 04/04/21 18:00 Patient has been seen and MSE started. I have assumed care. Labs and CT are pending. CT was obtained because the patient has fallen, had a syncopal event, striking her head, and is on Plavix as well as Eliquis. Reevaluation #2: 04/04/21 18:53 troponin was noted. This seems to have trended down from her last admission Reevaluation #3: 04/04/21 19:27 Case was discussed with Dr. Cratf for cardiology. They request a repeat troponin although it is likely that this is just trending down from her recent NSTEMI. If the repeat troponin is normal, patient will be discharged. ED Medical Decision Making - Lab Data Result diagrams: 04/04/21 18:04 04/04/21 18:04 Critical Care Time: No Critical care attestation.: If time is entered above; I have spent that time in minutes in the direct care of this critically ill patient, excluding procedure time. ED Disposition Clinical Impression: General weakness Syncope Qualifiers: Syncope type: unspecified Qualified Code(s): R55 - Syncope and collapse Facial contusion Qualifiers: Encounter type: initial encounter Qualified Code(s): S00.83XA - Contusion of other part of head, initial encounter Disposition: HOME / SELF CARE / HOMELESS Is pt being admited?: No Condition: Stable Instructions: Syncope (ED), Contusion, [id number], How to Use Cold Therapy, [id number], Syncope Additional Instructions: Apply ice to sore areas. Plenty of water. Return for problems. Follow-up with your regular doctor for recheck. Follow-up with cardiology as well. Referrals: PRIMARY MD ROSS [Referring] - 3-5 Days RAMYA CRAFT MD [Staff Physician] - 3-5 Days
--- NOTE | 2021-04-04 18:05 | XRay Report ---
CHEST 2 VIEWS INDICATION / CLINICAL INFORMATION: Cough. COMPARISON: 03/21/21. FINDINGS: SUPPORT DEVICES: None. HEART / MEDIASTINUM: The heart size is borderline in size and unchanged. Pulmonary vasculature is nor mal. LUNGS / PLEURA: There is mild right basilar subsegmental atelectasis laterally. Slight thickening of the right minor fissure laterally appears more prominent. No pneumothorax. ADDITIONAL FINDINGS: No significant additional findings. IMPRESSION: 1. Mild right basilar subsegmental atelectasis laterally. 2. Mild nonspecific thickening of the right minor fissure laterally appears slightly increased. Signer Name: Edilberto Green MD Signed: 04/04/2021 6:00 PM Workstation Name: [id number]
[2021-04-04 18:48] LABS: Albumin 3.6 g/dL (3.9-5); Calcium 9.1 mg/dL (8.4-10.2)
[2021-04-04 18:53] LABS: Basophils # (Auto) 0.1 K/mm3 (0.0-0.1); Basophils % (Auto) 0.6 % (0.0-1.8); Eosinophils # (Auto) 0.2 K/mm3 (0.0-0.4); Eosinophils % (Auto) 1.4 % (0.0-4.3); Hematocrit 32.2 % (30.3-42.9); Hemoglobin 10.6 gm/dl (10.1-14.3); Lymphocytes # (Auto) 2.4 K/mm3 (1.2-5.4); Lymphocytes % (Auto) 16.9 % (13.4-35.0); Mean Corpuscular HGB Conc 33 % (30-34); Mean Corpuscular Volume 90 fl (79-97); Monocytes # (Auto) 1.6 K/mm3 (0.0-0.8); Monocytes % (Auto) 11.1 % (0.0-7.3); Platelet Count 324 K/mm3 (140-440); Red Cell Distribution Width 14.3 % (13.2-15.2)
[2021-04-04 19:11] LABS: Partial Thromboplastin Time 38.3 Sec. (24.2-36.6)
[2021-04-04 19:12] LABS: INR 1.14 (0.87-1.13)
[2021-04-04] MEDS ORDERED: ACETAMINOPHEN 325 MG TAB PO ONE (19:59)
--- NOTE | 2021-04-04 20:50 | Cat Scan Report ---
CT HEAD WITHOUT CONTRAST INDICATION / CLINICAL INFORMATION: DIZZY SP RI- ON ASA/PLAVIX/ELOQUIS. TECHNIQUE: All CT scans at this location are performed using CT dose reduction for ALARA by means of automated e xposure control. COMPARISON: None available. FINDINGS: HEMORRHAGE: No evidence of intracranial hemorrhage or extra-axial fluid collection. EXTRA-AXIAL SPACES: Cortical sulci and sylvian fissures are normal in size and configuration given th e patient's age of 65 years. Basilar cisterns have an unremarkable appearance. VENTRICULAR SYSTEM: The third and lateral ventricles are within normal limits for size in this 65-yea r-old individual. CEREBRAL PARENCHYMA: Extensive periventricular, subcortical white matter and deep w jessi matter lucency is observed. This is probably secondary to advanced microvascular ischemic change . There is no indication of recent infarction. No areas of encephalomalacia are identified. MIDLINE SHIFT OR HERNIATION: There is no mass effect. CEREBELLUM / BRAINSTEM: Brainstem has an unremarkable appearance. Age related cerebellar atrophy is n oted. MIDLINE STRUCTURES:Pituitary gland has an unremarkable appearance. No abnormalities are seen in the p ineal region. INTRACRANIAL VESSELS:Calcified atherosclerotic plaque is present along the course of the cavernous se gments of both internal carotid arteries. Similar findings are seen at the distal vertebral arteries. ORBITS: visualized portions of the orbits have an unremarkable appearance. SOFT TISSUES of HEAD: No significant abnormality. Incidental note is made of hyperostosis frontalis i nterna. CALVARIUM: Evaluation of bone windows reveals no abnormalities. PARANASAL SINUSES / MASTOID AIR CELLS: Paranasal sinuses are free from inflammatory mucosal disease. Mastoid air cells are normally pneumatized. IMPRESSION: 1. Advanced microvascular ischemic changes observed matter of both cerebral arteries. 2. Otherwise negative head CT without contrast. Signer Name: Kan Elena MD Signed: 04/04/2021 8:46 PM Workstation Name: [email or web address]
[2021-04-04 21:18] LABS: Chol/HDL Ratio 1.73 %
--- NOTE | 2021-04-05 10:42 | Electrocardiograph Report ---
[facility] Test Date: 2021-04-04 Test Time: 20:14:14 Pat Name: CARLIE TOLEDO Department: Room: Gender: F Waiter/Waitress Formal: SPIKE : 1955 Requested By: CHANTALE FORRESTER Order Number: [id number] Reading MD: Edil Major Measurements Intervals [place] Rate: 73 P: 43 TN: 217 QRS: 4 QRSD: 96 T: -60 QT: 402 QTc: 443 Interpretive Statements Sinus rhythm Borderline prolonged TN interval Low voltage, extremity leads Nonspecific T abnormalities, inferior leads PRWP Compared to ECG 03/26/2021 09:10:27 Low QRS voltage now present T-wave abnormality now present Atrial fibrillation no longer present ST (T wave) deviation no longer present Possible ischemia no longer present Myocardial infarct finding no longer present Electronically Signed On 04-05-2021 10:42:08 EDT by Edil Major
== END 2021-04-04 21:30 | disposition home or self-care (01) ==
LOC: ED 17:24
DX: S00.83XA Contusion of other part of head, initial encounter (principal); R55 Syncope and collapse; R53.1 Weakness; I10 Essential (primary) hypertension; E11.8 Type 2 diabetes mellitus with unspecified complications; M19.09 Primary osteoarthritis, other specified site; E78.00 Pure hypercholesterolemia, unspecified; E66.9 Obesity, unspecified; Z90.710 Acquired absence of both cervix and uterus; Z98.890 Other specified postprocedural states; Z87.891 Personal history of nicotine dependence; Z88.0 Allergy status to penicillin; Z88.5 Allergy status to narcotic agent; W19.XXXA Unspecified fall, initial encounter; Y93.89 Activity, other specified; Y92.89 Other specified places as the place of occurrence of the external cause; Y99.8 Other external cause status
CPT/HCPCS: 36415; 70450; 71046; 80053; 80061; 82805; 82962; 84484; 85025; 85610; 85730; 93005; 99284